=== PATIENT | female | born 2000 | race Caucasian/White ===

== ENCOUNTER 2020-03-07 09:13 | Outpatient (REF) | payer OTHER, SELFPAY | END 2020-03-07 09:14 | disposition home or self-care (01) | LOC: HO.LAB 09:13 | PROVIDERS: Visit Provider Internal Medicine | DX: Z20.822 Contact with and (suspected) exposure to COVID-19 (principal) | CPT/HCPCS: 36415; C9803; U0003 ==

== ENCOUNTER 2020-03-07 09:27 | Emergency (ER) | payer OTHER, SELFPAY ==
[2020-03-07 10:29] VITALS: BP 111/71; PULSE 108; RESP 20; TEMP 37.8; O2SAT 100; BMI 24.7
--- NOTE | 2020-03-07 10:33 | ECG_ITS ---
Test Reason : SYNCOPE Blood Pressure : / mmHG Vent. Rate : 099 BPM Atrial Rate : 099 BPM P-R Int : 124 ms QRS Dur : 074 ms QT Int : 322 ms P-R-T Axes : 011 037 036 degrees QTc Int : 413 ms Normal sinus rhythm Normal ECG No previous ECGs available Referred By: Hamida Price Electronically Signed By:Taran Blackman
--- NOTE | 2020-03-07 10:33 | XR_ITS ---
EXAMINATION: XR CHEST CLINICAL INFORMATION: Cough. COMPARISON: None TECHNIQUE: Frontal view of the chest was obtained. FINDINGS: The lungs are well-expanded and clear acute process. The heart size and pulmonary vascularity is normal. Mild extra scoliosis of mid dorsal spine. No lytic process. XR/XR chest 1V IMPRESSION: Unremarkable chest exam.
--- NOTE | 2020-03-07 10:50 | ED_ITS ---
HPI - Syncope General Chief Complaint: Syncope Stated Complaint: passed out Time Seen by Provider: 03/07/20 10:33 Source: patient Mode of arrival: ambulatory Limitations: no limitations History of Present Illness HPI narrative: 19 y/o healthy female who presents to the ED for evaluation after she passed out while in the shower this morning. She was feeling lightheaded and dizzy prior to the event. She does not think she hit her head, she has no neck pain. Her mother heard her fall and came to the bathroom, she was awake. She has a history of syncope in the past when she was sick with pneumonia. She did not eat any breakfast this morning. She reports a few days of cold symptoms including headache, nasal congestion, runny nose. She denies shortness of breath, chest pain. MD complaint: loss of consciousness, felt faint and collapsed Onset (ago): hour(s) (3) -: second(s) Prodromal symptoms: lightheaded Witnessed: No Context: at rest Injuries sustained associated with event: none Current symptoms: back to baseline History: previous syncopal episode Treatments prior to arrival: none Related Data Allergies Allergy/AdvReac Type Severity Reaction Status Date / Time No Known Allergies Allergy Verified 03/07/20 10:28 Review of Systems Review of Systems: Constitutional: No Fever, + Chills ENT/Mouth: + sore throat, + Rhinorrhea, No Swallowing Difficulty Eyes: No Eye Pain, No Swelling, No Redness Cardiovascular: No Chest Pain, No SOB, No Orthopnea, No Edema Respiratory: No Cough, No Sputum, No Wheezing, No dyspnea Gastrointestinal: No Nausea, No Vomiting, No Diarrhea, No abdominal Pain Genitourinary: No Dysuria, No Urinary Frequency, No Hematuria Musculoskeletal: No joint pain, + Myalgias Skin: No Skin Lesions, No rash Neuro: + Weakness, No Numbness, + Dizziness, + Headache Heme/Lymph: No Bruising, No Lymphadenopathy PMFSH Past Medical History Attestation statement: The following information was validated with the patient. Medical History (Updated 03/07/20 @ 12:49 by JAVIER Lopez) No known health problems Social History Social History Advance Directives: No Advance Directives Information Provided: No Physical Exam Vital Signs: Vital Signs: Last Vital Signs Temp 100.1 F 03/07/20 10:29 Pulse 119 H 03/07/20 11:48 Resp 20 03/07/20 10:29 BP 136/69 03/07/20 11:48 Pulse Ox 100 03/07/20 10:29 Body Mass Index 24.7 Appearance: Alert. Oriented X3. No acute distress. Head: normocephalic, atraumatic, no tenderness Neck: supple, no cervical spinal tenderness, normal ROM Eyes: Pupils equal, round and reactive to light. EOMI. ENT: Pharynx normal. Neck: Normal inspection. Neck supple. CVS: Normal heart rate and rhythm. Pulses normal. Respiratory: No respiratory distress. Breath sounds normal. Abdomen: Soft and nontender. +BS x4 Skin: Skin warm and dry. Normal skin color. Normal skin turgor. No rashes. Extremities: No lower extremity edema. Neuro: Oriented X 3. No motor deficit. No sensory deficit. Course Course Course Narrative: 19 y/o female presenting with syncopal event when getting out of the shower today associated with flu-like symptoms. Suspect vasovagal syncope. Now back to baseline, no injuries or neurological deficits on exam. She appears well. Doubt PE. Will get lab workup, EKG and resp panel. VSS. Will give gentle hydration and check orthostatic VS. Reevaluation(s) Reevaluation #1: Orthostatic + for tachycardia when standing, no dizziness. BP stable. IVF ordered as well as tylenol. COVID is positive. She is not hypoxic, SOB or coughing. MDM - Syncope Differential Diagnosis Differential diagnosis: Likely syncope due to orthostatic hypotension, vasovagal syncope and dehydration Medical Records Attestation: I reviewed the patient's medical records. Lab Data Attestation: I reviewed the patient's lab results. Result diagrams: 03/07/20 11:10 03/07/20 11:10 Labs: Lab Results 03/07/20 03/07/20 03/07/20 Range/Units 11:10 11:10 11:10 WBC 6.1 (4.8-10.8) X10*3/uL RBC 4.46 (4.20-5.50) X10*6/uL Hgb 13.5 (12.0-16.0) g/dl Hct 40.7 (37-47) % MCV 91.3 (80-98) fL MCH 30.3 (27.0-33.0) pg MCHC 33.2 (31.0-35.0) g/dl RDW 12.8 (11.0-16.0) % Plt Count 248 (160-400) X10*3/uL MPV 9.5 (9.4-12.3) fL Immature Gran % (Auto) 0.2 (0.0-0.4) % Neut % (Auto) 77.4 H (45-73) % Lymph % (Auto) 8.8 L (20-40) % Bartholomew % (Auto) 10.3 (2-11) % Eos % (Auto) 2.3 (0-4) % Baso % (Auto) 1.0 (0-2) % Lymph # (Auto) 0.5 L (1.2-4.9) X10*3/uL Bartholomew # (Auto) 0.6 (0.1-1.2) X10*3/uL Eos # (Auto) 0.1 (0.0-0.4) X10*3/uL Baso # (Auto) 0.1 (0.0-0.2) X10*3/uL Abs Immat Gran (auto) 0.01 (0.00-0.03) X10*3/uL Absolute Neuts (auto) 4.8 (2.0-8.3) X10*3/uL Absolute Nucleated RBC 0.000 (0.0-0.012) X10*3/uL Nucleated RBC % (auto) 0.0 (0.0-0.2) /100WBC Smear Tech's Comments VERIFIED Hold Blue Top SEE NOTE Sodium 136 (135-145) mmol/L Potassium 4.3 (3.3-5.1) mmol/l Chloride 101 (96-108) mmol/L Carbon Dioxide 28 (22-29) mmol/L Anion Gap 11 L (12-20) BUN 11 (9-16) mg/dL Creatinine 0.78 (0.5-1.4) mg/dL Estim Creat Clear Calc 90.6 Estimated GFR > 60 Random Glucose 89 (60-115) mg/dL Lactic Acid (0.5-2.0) mmol/L Calcium 9.1 (8.4-10.2) mg/dL Magnesium 2.0 (1.6-2.6) mg/dL Total Bilirubin 0.2 (0.0-1.0) mg/dL Direct Bilirubin < 0.2 (0.0-0.5) mg/dL AST 27 (5-31) U/L ALT 51 H (0-31) U/L Alkaline Phosphatase 78 (39-117) U/L C-Reactive Protein 0.48 (< or = 0.50) mg/dL Total Protein 6.8 (6.5-8.0) g/dL Albumin 4.2 (3.5-5.0) g/dL Urine Color Urine Appearance Urine pH (5.0-8.0) Ur Specific [place] (1.005-1.025) Urine Protein (NEG-TRACE) MG/DL Urine Glucose (UA) (NEG) MG/DL Urine Ketones (NEG) MG/DL Urine Blood (NEG) Urine Nitrite (NEG) Ur Leukocyte Esterase (NEG) Urine RBC (0) /HPF Urine WBC (0-4) /HPF Ur Squamous Epith Cells /LPF Urine Bacteria /LPF Urine Test (NEGATIVE) Urine Opiates Screen (Not Detect) Ur Barbiturates Screen (Not Detect) Ur Phencyclidine Scrn (Not Detect) Ur Amphetamines Screen (Not Detect) U Benzodiazepines Scrn (Not Detect) Urine Cocaine Screen (Not Detect) U Marijuana (THC) Screen (Not Detect) Coronavirus (PCR) (Negative) Influenza Type A (PCR) (Negative) Influenza Type B (PCR) (Negative) RSV RNA Qual (PCR) (Negative) 03/07/20 03/07/20 03/07/20 Range/Units 11:10 11:10 11:10 WBC (4.8-10.8) X10*3/uL RBC (4.20-5.50) X10*6/uL Hgb (12.0-16.0) g/dl Hct (37-47) % MCV (80-98) fL MCH (27.0-33.0) pg MCHC (31.0-35.0) g/dl RDW (11.0-16.0) % Plt Count (160-400) X10*3/uL MPV (9.4-12.3) fL Immature Gran % (Auto) (0.0-0.4) % Neut % (Auto) (45-73) % Lymph % (Auto) (20-40) % Bartholomew % (Auto) (2-11) % Eos % (Auto) (0-4) % Baso % (Auto) (0-2) % Lymph # (Auto) (1.2-4.9) X10*3/uL Bartholomew # (Auto) (0.1-1.2) X10*3/uL Eos # (Auto) (0.0-0.4) X10*3/uL Baso # (Auto) (0.0-0.2) X10*3/uL Abs Immat Gran (auto) (0.00-0.03) X10*3/uL Absolute Neuts (auto) (2.0-8.3) X10*3/uL Absolute Nucleated RBC (0.0-0.012) X10*3/uL Nucleated RBC % (auto) (0.0-0.2) /100WBC Smear Tech's Comments Hold Blue Top Sodium (135-145) mmol/L Potassium (3.3-5.1) mmol/l Chloride (96-108) mmol/L Carbon Dioxide (22-29) mmol/L Anion Gap (12-20) BUN (9-16) mg/dL Creatinine (0.5-1.4) mg/dL Estim Creat Clear Calc Estimated GFR Random Glucose (60-115) mg/dL Lactic Acid (0.5-2.0) mmol/L Calcium (8.4-10.2) mg/dL Magnesium (1.6-2.6) mg/dL Total Bilirubin (0.0-1.0) mg/dL Direct Bilirubin (0.0-0.5) mg/dL AST (5-31) U/L ALT (0-31) U/L Alkaline Phosphatase (39-117) U/L C-Reactive Protein (< or = 0.50) mg/dL Total Protein (6.5-8.0) g/dL Albumin (3.5-5.0) g/dL Urine Color STRAW Urine Appearance CLOUDY Urine pH 6.0 (5.0-8.0) Ur Specific [place] <= 1.005 (1.005-1.025) Urine Protein NEG (NEG-TRACE) MG/DL Urine Glucose (UA) NEG (NEG) MG/DL Urine Ketones NEG (NEG) MG/DL Urine Blood 3+ H (NEG) Urine Nitrite NEG (NEG) Ur Leukocyte Esterase 2+ H (NEG) Urine RBC 5-9 H (0) /HPF Urine WBC 10-14 H (0-4) /HPF Ur Squamous Epith Cells 4+ /LPF Urine Bacteria 2+ /LPF Urine Test NEGATIVE (NEGATIVE) Urine Opiates Screen Not Detected (Not Detect) Ur Barbiturates Screen Not Detected (Not Detect) Ur Phencyclidine Scrn Not Detected (Not Detect) Ur Amphetamines Screen Not Detected (Not Detect) U Benzodiazepines Scrn Not Detected (Not Detect) Urine Cocaine Screen Not Detected (Not Detect) U Marijuana (THC) Screen Not Detected (Not Detect) Coronavirus (PCR) POSITIVE A (Negative) Influenza Type A (PCR) NEGATIVE (Negative) Influenza Type B (PCR) NEGATIVE (Negative) RSV RNA Qual (PCR) NEGATIVE (Negative) 03/07/20 Range/Units 11:35 WBC (4.8-10.8) X10*3/uL RBC (4.20-5.50) X10*6/uL Hgb (12.0-16.0) g/dl Hct (37-47) % MCV (80-98) fL MCH (27.0-33.0) pg MCHC (31.0-35.0) g/dl RDW (11.0-16.0) % Plt Count (160-400) X10*3/uL MPV (9.4-12.3) fL Immature Gran % (Auto) (0.0-0.4) % Neut % (Auto) (45-73) % Lymph % (Auto) (20-40) % Bartholomew % (Auto) (2-11) % Eos % (Auto) (0-4) % Baso % (Auto) (0-2) % Lymph # (Auto) (1.2-4.9) X10*3/uL Bartholomew # (Auto) (0.1-1.2) X10*3/uL Eos # (Auto) (0.0-0.4) X10*3/uL Baso # (Auto) (0.0-0.2) X10*3/uL Abs Immat Gran (auto) (0.00-0.03) X10*3/uL Absolute Neuts (auto) (2.0-8.3) X10*3/uL Absolute Nucleated RBC (0.0-0.012) X10*3/uL Nucleated RBC % (auto) (0.0-0.2) /100WBC Smear Tech's Comments Hold Blue Top Sodium (135-145) mmol/L Potassium (3.3-5.1) mmol/l Chloride (96-108) mmol/L Carbon Dioxide (22-29) mmol/L Anion Gap (12-20) BUN (9-16) mg/dL Creatinine (0.5-1.4) mg/dL Estim Creat Clear Calc Estimated GFR Random Glucose (60-115) mg/dL Lactic Acid 0.6 (0.5-2.0) mmol/L Calcium (8.4-10.2) mg/dL Magnesium (1.6-2.6) mg/dL Total Bilirubin (0.0-1.0) mg/dL Direct Bilirubin (0.0-0.5) mg/dL AST (5-31) U/L ALT (0-31) U/L Alkaline Phosphatase (39-117) U/L C-Reactive Protein (< or = 0.50) mg/dL Total Protein (6.5-8.0) g/dL Albumin (3.5-5.0) g/dL Urine Color Urine Appearance Urine pH (5.0-8.0) Ur Specific [place] (1.005-1.025) Urine Protein (NEG-TRACE) MG/DL Urine Glucose (UA) (NEG) MG/DL Urine Ketones (NEG) MG/DL Urine Blood (NEG) Urine Nitrite (NEG) Ur Leukocyte Esterase (NEG) Urine RBC (0) /HPF Urine WBC (0-4) /HPF Ur Squamous Epith Cells /LPF Urine Bacteria /LPF Urine Test (NEGATIVE) Urine Opiates Screen (Not Detect) Ur Barbiturates Screen (Not Detect) Ur Phencyclidine Scrn (Not Detect) Ur Amphetamines Screen (Not Detect) U Benzodiazepines Scrn (Not Detect) Urine Cocaine Screen (Not Detect) U Marijuana (THC) Screen (Not Detect) Coronavirus (PCR) (Negative) Influenza Type A (PCR) (Negative) Influenza Type B (PCR) (Negative) RSV RNA Qual (PCR) (Negative) ECG Data Attestation: I personally reviewed and interpreted this ECG as follows: ECG interpretation date: 03/07/20 ECG interpretation time: 11:13 Interpretation: normal sinus rhythm, HR 99, normal AR interval, normal QTc, no ST elevation or ischemic changes Discharge Plan Discharge Clinical Impression: Vasovagal syncope, COVID-19 Patient Disposition: Home, Self-Care Instructions: Syncope (ED), COVID-19 (Coronavirus Disease 2019) (ED) Additional Instructions: You were found to be COVID positive today. Your workup was otherwise unremarkable. Do not go out in public for the next 14 days. Rest, stay hydrated. Take over the counter cold/flu medications as needed for your symptoms. Take Motrin and/or Tylenol as needed for fevers and body aches. If you develop shortness of breath, difficultly breathing, chest pain, or pass out again, come back the ER for further evaluation. Interventions: ED Discharge Assessment Last Done: 03/07/20 13:48 Discharge Date/Time: 03/07/20 13:49
[2020-03-07 11:19] LABS: Basophils Absolute Auto 0.1 X10*3/uL (0.0-0.2); Eosinophils Absolute Auto 0.1 X10*3/uL (0.0-0.4); Eosinophils Percent Auto 2.3 % (0-4); Hematocrit 40.7 % (37-47); Hemoglobin 13.5 g/dl (12.0-16.0); Imm Gran Abs Auto 0.01 X10*3/uL (0.00-0.03); Imm Gran Pct Auto 0.2 % (0.0-0.4); Lymphocytes Absolute Auto 0.5 X10*3/uL (1.2-4.9); Lymphocytes Percent Auto 8.8 % (20-40); MANUAL DIFF FLAG SCAN; Mean Corpuscular HGB Conc 33.2 g/dl (31.0-35.0); Mean Corpuscular Hemoglobin 30.3 pg (27.0-33.0); Mean Corpuscular Volume 91.3 fL (80-98); Mean Platelet Volume 9.5 fL (9.4-12.3); Monocytes Absolute Auto 0.6 X10*3/uL (0.1-1.2); Monocytes Percent Auto 10.3 % (2-11); Neutrophils Absolute Auto 4.8 X10*3/uL (2.0-8.3); Neutrophils Percent Auto 77.4 % (45-73); Platelet Count 248 X10*3/uL (160-400); Red Blood Count 4.46 X10*6/uL (4.20-5.50); Red Cell Distribution Width 12.8 % (11.0-16.0); SCAN SMEAR FLAG 1; White Blood Count 6.1 X10*3/uL (4.8-10.8)
[2020-03-07] MEDS: Acetaminophen 325 MG TABLET 650 MG PO (11:21)
[2020-03-07] MEDS: 0.9 % Sodium Chloride 1,000 ML 999 ML IVCONT (11:22)
[2020-03-07 11:28] LABS: Glucose Urine UA NEG (NEG); Leukocyte Esterase Urine 2+ (NEG); Nitrite Urine NEG (NEG); Specific Gravity - Urine <= 1.005 (1.005-1.025); Urine Blood 3+ (NEG); Urine Ketones NEG (NEG); Urine Protein NEG (NEG-TRACE)
[2020-03-07 11:31] LABS: Urine Pregnancy NEGATIVE (NEGATIVE)
[2020-03-07 11:32] LABS: Appearance Urine CLOUDY; Color Urine STRAW; UPreg QC Valid YES
[2020-03-07 11:36] LABS: Bacteria Urine 2+ /LPF; Squamous Epithelial Cell Urine 4+ /LPF
[2020-03-07 11:45] LABS: Alanine Aminotransferase 51 U/L (0-31); Albumin Level 4.2 g/dL (3.5-5.0); Alkaline Phosphatase 78 U/L (39-117); Anion Gap 11 (12-20); Aspartate Amino Transferase 27 U/L (5-31); Bilirubin Direct < 0.2 mg/dL (0.0-0.5); Bilirubin Total 0.2 mg/dL (0.0-1.0); Blood Urea Nitrogen 11 mg/dL (9-16); C Reactive Protein 0.48 mg/dL (< or = 0.50); Calcium 9.1 mg/dL (8.4-10.2); Carbon Dioxide 28 mmol/L (22-29); Chloride 101 mmol/L (96-108); Creatinine Clr Calc Pharmacy 90.6; Estimated Glomerular Filt Rate > 60; Glucose Random 89 mg/dL (60-115); Potassium 4.3 mmol/l (3.3-5.1); Sodium 136 mmol/L (135-145); Total Protein 6.8 g/dL (6.5-8.0)
[2020-03-07 11:46] VITALS: BP 111/71; BP 114/69; PULSE 100; PULSE 108
[2020-03-07 11:48] VITALS: BP 136/69; PULSE 119
[2020-03-07 12:00] LABS: Influenza A PCR NEGATIVE (Negative); Influenza B PCR NEGATIVE (Negative); Resp Syncy Virus RNA Qual PCR NEGATIVE (Negative); SARS COV2 PCR INHOUSE POSITIVE (Negative)
[2020-03-07 12:07] LABS: Lactic Acid 0.6 mmol/L (0.5-2.0)
[2020-03-07 12:07] LABS: SLIDE REVIEW VERIFIED
[2020-03-07 12:11] LABS: Amphetamine Screen Urine Not Detected (Not Detect); Barbiturates, Urine Not Detected (Not Detect); Benzodiazepines Screen Urine Not Detected (Not Detect); Cannabinoid Screen Urine Not Detected (Not Detect); Cocaine Screen Urine Not Detected (Not Detect); Opiate Screen Urine Not Detected (Not Detect); Phencyclidine Screen Urine Not Detected (Not Detect)
== END 2020-03-07 13:49 | disposition home or self-care (01) ==
PROVIDERS: Physician Assistant; Emergency Provider Emergency Medicine
DX: U07.1 COVID-19 (principal); R55 Syncope and collapse
CPT/HCPCS: 0241U; 36415; 71045; 80048; 80076; 80307; 81001; 81025; 83605; 83735; 85025; 86140; 87040; 87086; 93005; 96360; 99283; 99284

== ENCOUNTER → 2020-07-27 14:33 | Outpatient (BNVA) | payer OTHER, SELFPAY | PROVIDERS: PCP Internal Medicine; Visit Provider Advanced Practice Midwife ==

== ENCOUNTER 2020-09-07 09:15 | Outpatient (REF) | payer OTHER, SELFPAY ==
[2020-09-07 12:25] LABS: Alanine Aminotransferase 19 U/L (0-31); Albumin Level 4.1 g/dL (3.5-5.0); Alkaline Phosphatase 81 U/L (39-117); Anion Gap 14 (12-20); Aspartate Amino Transferase 20 U/L (5-31); Bilirubin Total 0.5 mg/dL (0.0-1.0); Blood Urea Nitrogen 14 mg/dL (9-16); Calcium 9.6 mg/dL (8.4-10.2); Carbon Dioxide 26 mmol/L (22-29); Chloride 104 mmol/L (96-108); Cholesterol 151 mg/dL; Estimated Glomerular Filt Rate > 60; Glucose Fasting 74 mg/dL (60-99); HDL Cholesterol 85 mg/dL; LDL Cholesterol Calculated 51 mg/dl; Potassium 4.6 mmol/L (3.3-5.1); Sodium 139 mmol/L (135-145); Total Protein 6.8 g/dL (6.5-8.0); Triglycerides 78 mg/dL
== END 2020-09-07 09:16 | disposition home or self-care (01) ==
LOC: HO.HMGCLDS 09:15
PROVIDERS: PCP Internal Medicine; Visit Provider Internal Medicine
DX: Z00.01 Encounter for general adult medical examination with abnormal findings (principal); R79.89 Other specified abnormal findings of blood chemistry
CPT/HCPCS: 36415; 80053; 80061

== ENCOUNTER 2020-11-28 10:37 | Outpatient (REF) | payer OTHER, SELFPAY ==
[2020-12-01 16:30] LABS: TS Negative Control Passed; TS Panel A 0; TS Panel B 0; TS Positive Control Passed; TSpotTB Negative (SeeBelow)
== END 2020-11-28 10:38 | disposition home or self-care (01) ==
LOC: HO.HMGCLDS 10:37
PROVIDERS: PCP Internal Medicine; Visit Provider Internal Medicine
DX: Z11.1 Encounter for screening for respiratory tuberculosis (principal)
CPT/HCPCS: 36415; 86481

== ENCOUNTER → 2021-01-04 15:01 | Outpatient (BNVA) | payer OTHER, SELFPAY | PROVIDERS: Visit Provider Advanced Practice Midwife | DX: Z30.09 Encounter for other general counseling and advice on contraception (principal); Z30.017 Encounter for initial prescription of implantable subdermal contraceptive | CPT/HCPCS: 11981; 81025; 99212; J7307 ==

== ENCOUNTER 2022-07-17 12:57 | Outpatient (REF) | payer OTHER, SELFPAY ==
[2022-07-18 07:27] LABS: ~Hepatitis B Surface Antibody NONREACTIVE (Nonreactive)
[2022-07-19 05:09] LABS: Rubella IgG Antibody 2.38 Index
[2022-07-19 11:09] LABS: Mumps Virus IgG Antibody <9.00 AU/mL; Rubeola IgG (Measles) <13.50 AU/mL
[2022-07-19 11:18] LABS: TS Negative Control Passed; TS Panel A 0; TS Panel B 2; TS Positive Control Passed; TSpotTB Negative (Negative)
[2022-07-24 15:07] LABS: Tetanus Antitoxiod Antibody 0.48 IU/mL
== END 2022-07-17 12:58 | disposition home or self-care (01) ==
LOC: HO.HMGCLDS 12:57
PROVIDERS: PCP Internal Medicine; Visit Provider Internal Medicine
DX: Z02.0 Encounter for examination for admission to educational institution (principal); Z28.39 Other underimmunization status
CPT/HCPCS: 36415; 86481; 86706; 86735; 86762; 86765; 86774; 86787

== ENCOUNTER 2022-07-25 08:04 | Outpatient (REF) | payer OTHER, SELFPAY ==
[2022-07-27 08:09] LABS: HBS Num1 0.42 mIU/mL (0-7.99); ~Hepatitis B Surface Antibody NONREACTIVE (Nonreactive)
== END 2022-07-25 08:05 | disposition home or self-care (01) ==
LOC: HO.HMGCLDS 08:04
PROVIDERS: PCP Internal Medicine; Visit Provider Internal Medicine
DX: Z28.39 Other underimmunization status (principal)
CPT/HCPCS: 36415; 86706

== ENCOUNTER 2023-02-06 12:13 | Outpatient (AMB) | payer OTHER, SELFPAY ==
[2023-02-06 12:21] VITALS: BP 100/62; PULSE 90; O2SAT 98; BMI 29.8
--- NOTE | 2023-02-06 12:21 | A.OFFPC_ITS ---
Vital Signs 3 02/06/23 12:21 Height 5 ft Weight 152 lb 8 oz BMI 29.8 BP 100/62 Blood Pressure Location Rt brachial Position Sitting Pulse 90 Pulse Source Pulse Oximeter Pulse Oximetry (%) 98 Oxygen Delivery Method Room Air Intake Visit Reasons: back pain Allergies No Known Allergies Allergy (Verified 02/06/23 12:26) Medication List - Last Reconciled 02/06/23 by Kelly Kamara MD etonogestrel (Nexplanon) subdermal DAILY ibuprofen 800 mg PO Q8H 10 days Tobacco use date assessed: 02/06/23 Dental Screening Dental Screen Date: 02/06/23 Did you have a dental visit in the last 12 months?: Yes Did you have a dental problem in the last 6 months where you did not have access to dental care?: No Was dental information given to patient?: Patient has dentist HPI back pain 2 HPI0 Details Patient is 22-year-old female came in today to be evaluated for mid back pain which has been happening for the past 1 week She is also complaining of pain in the back of the neck which started 3 days ago 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 I am treating her with a muscle relaxer and diclofenac 75 mg b.i.d. with food Patient says that she took Tylenol and ibuprofen yesterday that did help her I have told her not to take ibuprofen with diclofenac. We will book a telemedicine visit in 10 days to follow-up on that [facility] Medical History No known health problems Social History Housing: House Alcohol intake: current Alcohol intake frequency: holidays/special occasions only Patient Tobacco Use Status: Never used Tobacco e-Cigarette/Vaping Use: Never Used Current occupational status: employed Gender identity: Female Cognitive needs: No Hearing needs: No Vision needs: Yes Female Reproductive History Menstrual Age of Menarche: 11 Questionnaire Thrive Questionnaire Date Thrive assessed: 07/28/21 AUDIT C Alcohol Use Questionnaire (AUDIT-C) 1. How often do you have a drink containing alcohol?: 2-4 times a month 2. How many drinks containing alcohol do you have on a typical day when you are drinking?: 3 or 4 3. How often do you have six or more drinks on one occasion?: Never Total Score: 3 Score Reviewed/Action Taken: Yes JANENE-7 AMB Questionnaire JANENE-7 Date JANENE - 7 assessed: 07/28/21 Source: Developed by Drs. Nabeel Lyon, Kath Walsh, Austin Aguilar and colleagues, with an educational roxy from [employer] Review of Systems Const All systems reviewed & are unremarkable except as noted in HPI and below Denies chills and Denies fever(s) Card Denies chest pain Resp Denies chest congestion, Denies cough and Denies hemoptysis GI Denies diarrhea and Denies nausea Skin/Breast Denies rash Neuro Reports no additional complaints Psych Reports no additional complaints Endo Reports no additional complaints Physical exam (Primary Care) Vital Signs: Last Vital Signs Pulse 90 02/06/23 12:21 BP 100/62 02/06/23 12:21 Pulse Ox 98 02/06/23 12:21 Oxygen Delivery Method Room Air 02/06/23 12:21 BMI result Body Mass Index 29.8 Tobacco/Smoking Status: Tobacco use Status Tobacco use date assessed 02/06/23 02/06/23 12:26 Patient Tobacco Use Status Never used Tobacco 02/06/23 12:26 e-Cigarette/Vaping Use Never Used 02/06/23 12:26 Thrive Assessment: Date of Thrive Assessment Date Thrive assessed 07/28/21 02/06/23 12:26 Const General: no acute distress Orientation/consciousness: patient oriented x3 Eyes General: appearance normal, both eyes and all related structures Neck Other: Pain located the back of neck Neck: Yes supple Resp Effort & Inspection: normal respiratory effort and able to speak in complete sentences Auscultation: clear to auscultation bilaterally Back/Spine/Pelvis Back/spine/pelvis image: 2 1. Side pain, no rash, no pain with percussion Neuro General: patient oriented x3 Psych Mental Status: mental status grossly normal Assessment and Plan Assessment & Plan (1) Neck strain: Code(s): S16.1XXA - Strain of muscle, fascia and tendon at neck level, initial encounter Qualifiers: Encounter type: initial encounter Qualified Code(s): S16.1XXA - Strain of muscle, fascia and tendon at neck level, initial encounter (2) Mid-back pain, acute: Code(s): M54.9 - Dorsalgia, unspecified Plan Patient is 22-year-old female came in today to be evaluated for mid back pain which has been happening for the past 1 week She is also complaining of pain in the back of the neck which started 3 days ago 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 I am treating her with a muscle relaxer and diclofenac 75 mg b.i.d. with food Patient says that she took Tylenol and ibuprofen yesterday that did help her I have told her not to take ibuprofen with diclofenac. We will book a telemedicine visit in 10 days to follow-up on that Medications: New 2 diclofenac sodium Take it with food 75 mg PO BID 28 tabs 0RF pain 14 days cyclobenzaprine 5 mg PO BID PRN 20 tabs 0RF muscle spasm 14 days Discontinued 2 ibuprofen Discontinued Reason: Doctor's Order 800 mg PO Q8H 10 days 30 tabs 0RF Coding Level of Care Code Est Pt Level 3 (64364) Diagnoses Strain of neck muscle, initial encounter S16.1XXA Encounter type: initial encounter Mid-back pain, acute M54.9
== END 2023-02-06 12:46 | disposition home or self-care (01) ==
PROVIDERS: PCP Internal Medicine; Visit Provider Internal Medicine
DX: S16.1XXA Strain of muscle, fascia and tendon at neck level, initial encounter (principal); M54.9 Dorsalgia, unspecified
CPT/HCPCS: 99213

== ENCOUNTER 2023-02-21 08:37 | Outpatient (AMB) | payer OTHER, SELFPAY ==
--- NOTE | 2023-02-21 09:15 | A.OFFPC_ITS ---
Intake Visit Reasons: 10 day F/U Telehealth Allergies No Known Allergies Allergy (Verified 02/21/23 09:15) Medication List - Last Reconciled 02/21/23 by Kelly Kamara MD cyclobenzaprine 5 mg PO BID PRN 14 days diclofenac sodium 75 mg PO BID 14 days etonogestrel (Nexplanon) subdermal DAILY Tobacco use date assessed: 02/21/23 Dental Screening Dental Screen Date: 02/21/23 Did you have a dental visit in the last 12 months?: Yes Did you have a dental problem in the last 6 months where you did not have access to dental care?: No Was dental information given to patient?: Patient has dentist HPI 10 day F/U Telehealth HPI Details Patient is 22-year-old female this is a telemedicine visit to follow-up on her mid back and neck pain Patient was seen 10 days ago and was prescribed diclofenac along with muscle relaxer She said that she did not benefit from the medication and she continued to feel the pain. I am ordering physical therapy for the patient we will re-evaluate after the physical therapy. [facility] Medical History No known health problems Social History Housing: House Alcohol intake: current Alcohol intake frequency: holidays/special occasions only Patient Tobacco Use Status: Never used Tobacco e-Cigarette/Vaping Use: Never Used Current occupational status: employed Gender identity: Female Cognitive needs: No Hearing needs: No Vision needs: Yes Female Reproductive History Menstrual Age of Menarche: 11 Questionnaire Thrive Questionnaire Date Thrive assessed: 07/28/21 JANENE-7 AMB Questionnaire JANENE-7 Date JANENE - 7 assessed: 07/28/21 Source: Developed by Drs. Nabeel Lyon, Kath Walsh, Austin Aguilar and colleagues, with an educational roxy from [employer]. Review of Systems Const Denies chills and Denies fever(s) ENT Denies epistaxis and Denies nasal discharge Card Denies chest pain Resp Denies chest congestion, Denies cough and Denies hemoptysis GI Denies diarrhea and Denies nausea Skin/Breast Denies rash Neuro Reports no additional complaints Psych Reports no additional complaints Endo Reports no additional complaints Physical exam (Primary Care) Tobacco/Smoking Status: Tobacco use Status Tobacco use date assessed 02/21/23 02/21/23 09:16 Patient Tobacco Use Status Never used Tobacco 02/21/23 09:16 e-Cigarette/Vaping Use Never Used 02/21/23 09:16 Thrive Assessment: Date of Thrive Assessment Date Thrive assessed 07/28/21 02/21/23 09:16 Telehealth Telehealth Location of provider rendering services: practice address Location of patient: address on file Patient Identification confirmed using: Name, : Yes Telehealth method: voice only Patient verbally consented to treatment: Yes Patient verbally consented to billing insurance company: Yes Patient informed of any privacy concerns related to visit: Yes Minutes spent on Phone/Video with Pt.: 11 Assessment and Plan Assessment & Plan (1) Neck strain: Code(s): S16.1XXA - Strain of muscle, fascia and tendon at neck level, initial encounter Qualifiers: Encounter type: initial encounter Qualified Code(s): S16.1XXA - Strain of muscle, fascia and tendon at neck level, initial encounter (2) Mid-back pain, acute: Code(s): M54.9 - Dorsalgia, unspecified Plan Patient is 22-year-old female this is a telemedicine visit to follow-up on her mid back and neck pain Patient was seen 10 days ago and was prescribed diclofenac along with muscle relaxer She said that she did not benefit from the medication and she continued to feel the pain. I am ordering physical therapy for the patient we will re-evaluate after the physical therapy. Orders: Orders PT Evaluation and Treatment Today M54.9 - Dorsalgia, unspecified, S16.1XXA - Strain of muscle, fascia and tendon at neck level, initial encounter Coding Level of Care Code Tele Est Pt Level 3 (50753) Diagnoses Strain of neck muscle, initial encounter S16.1XXA Encounter type: initial encounter Mid-back pain, acute M54.9
== END 2023-02-21 11:43 | disposition home or self-care (01) ==
PROVIDERS: PCP Internal Medicine; Visit Provider Internal Medicine
DX: S16.1XXA Strain of muscle, fascia and tendon at neck level, initial encounter (principal); M54.9 Dorsalgia, unspecified
CPT/HCPCS: 99213

== ENCOUNTER 2023-03-08 09:50 | Outpatient (AMB) | payer OTHER, SELFPAY ==
[2023-03-08 09:57] VITALS: BP 116/76; PULSE 107; O2SAT 98; BMI 29.6
--- NOTE | 2023-03-08 09:57 | MHC.PC.OV ---
Vital Signs 03/08/23 09:57 Height 5 ft Weight 151 lb 8 oz BMI 29.6 BP 116/76 Blood Pressure Location Lt brachial Position Sitting Pulse 107 H Pulse Source Pulse Oximeter Pulse Oximetry (%) 98 Oxygen Delivery Method Room Air Intake Visit Reasons: Annual PE Allergies No Known Allergies Allergy (Verified 03/08/23 09:58) Medication List - Last Reconciled 03/08/23 by Kelly Kamara MD etonogestrel (Nexplanon) subdermal DAILY Tobacco use date assessed: 03/08/23 Dental Screening Dental Screen Date: 03/08/23 Did you have a dental visit in the last 12 months?: Yes Did you have a dental problem in the last 6 months where you did not have access to dental care?: No Was dental information given to patient?: Patient has dentist HPI Annual PE HPI Details Physical exam appointment Patient is doing well She is seeing OBGYN for but controlled implantable Breast exam was done today no lumps were found Labs to be done fasting [facility] Medical History No known health problems Social History Housing: House Alcohol intake: current Alcohol intake frequency: holidays/special occasions only Patient Tobacco Use Status: Never used Tobacco e-Cigarette/Vaping Use: Never Used Current occupational status: employed Gender identity: Female Cognitive needs: No Hearing needs: No Vision needs: Yes Female Reproductive History Menstrual Age of Menarche: 11 Questionnaire PHQ-9 Over the last 2 weeks, how often have you been bothered by any of the following problems? 1. Little interest or pleasure in doing things: not at all 2. Feeling down, depressed, or hopeless: not at all 3. Trouble falling or staying asleep, or sleeping too much: several days 4. Feeling tired or having little energy: not at all 5. Poor appetite or overeating: not at all 6. Feeling bad about yourself - or that you are a failure or have let yourself or your family down: not at all 7. Trouble concentrating on things, such as reading the newspaper or watching television: not at all 8. Moving or speaking so slowly that other people could have noticed. Or the opposite - being so fidgety or restless that you have been moving around a lot more than usual: not at all 9. Thoughts that you would be better off or of hurting yourself in some way: not at all Total score: 1 Depression Screening Interpretation: Negative Depression Screening Done: Yes 89964 - PHQ-9 Billing: Yes Source: Developed by Drs. Nabeel Lyon, Kath Walsh, Austin Aguilar and colleagues, with an educational royx from [employer]. Thrive Questionnaire Date Thrive assessed: 07/28/21 I am a: Patient What is your living situation today?: I have a steady place to live Within the past 12 months, did the food you bought not last and you didn't have the money to get more?: Never true Within the past 12 months, did you worry whether your food would run out before you got money to buy more?: Never true Do you have trouble paying for medicines?: No Do you have trouble getting transportation to medical appointments?: No Do you have trouble paying your heating and electricity bill?: No Do you have trouble taking care of your child, family member or friend?: No Do you have trouble with day-to-day activities such as bathing, preparing meals, shopping, managing finances, etc.?: No Are you currently unemployed and looking for a job?: No Are you interested in more education?: No Please select the resources that you would like help with: None Currently or been in a relationship where the following occur: no concerns reported AUDIT C Alcohol Use Questionnaire (AUDIT-C) 1. How often do you have a drink containing alcohol?: 2-4 times a month 2. How many drinks containing alcohol do you have on a typical day when you are drinking?: 3 or 4 3. How often do you have six or more drinks on one occasion?: Never Total Score: 3 Score Reviewed/Action Taken: No JANENE-7 AMB Questionnaire JANENE-7 Date JANENE - 7 assessed: 03/08/23 Feeling nervous, anxious, or on edge: 0 = Not at all Not being able to stop or control worryin = Not at all Worrying too much about different things: 0 = Not at all Trouble relaxin = Not at all Being so restless that it is hard to sit still: 0 = Not at all Becoming easily annoyed or irritable: 0 = Not at all Feeling afraid as if something awful might happen: 0 = Not at all Total JANENE-7 score (0-4 normal; 5-9 mild; 10-14 moderate; 15-21 severe): 0 Source: Developed by Drs. Nabeel Lyon, Kath Walsh, Austin Aguilar and colleagues, with an educational roxy from [employer]. JANENE-7 Assessment Billing JANENE-7 Assessment Tool: JANENE-7 Assessment [id number] Review of Systems Const Denies chills, Denies fever(s) and Denies headache(s) Eyes Denies blurry vision ENT Denies headache(s), Denies nasal discharge, Denies nasal obstruction, Denies odynophagia and Denies sinus pain Card Denies chest pain at rest and Denies chest pain with activity Resp Denies cough and Denies hemoptysis GI Denies diarrhea, Denies odynophagia, Denies vomiting and Denies hematemesis Reports as per HPI Musc Denies abnormal gait Skin/Breast Reports as per HPI Neuro Denies Neuro-related abnormal movements, Denies Abnormal speech present, Denies abnormal gait, Denies headache(s) and Denies Sensory deficit (Neuro) Psych Denies mood swings and Denies paranoia Endo Reports as per HPI Jean Pierre/Lymph Reports as per HPI Aller/Immun Reports as per HPI Physical exam (Primary Care) Vital Signs: Last Vital Signs Pulse 107 H 03/08/23 09:57 BP 116/76 03/08/23 09:57 Pulse Ox 98 03/08/23 09:57 Oxygen Delivery Method Room Air 03/08/23 09:57 BMI result Body Mass Index 29.6 Tobacco/Smoking Status: Tobacco use Status Tobacco use date assessed 03/08/23 03/08/23 09:59 Patient Tobacco Use Status Never used Tobacco 03/08/23 09:59 e-Cigarette/Vaping Use Never Used 03/08/23 09:59 PHQ-9: PHQ-9 Score PHQ-9: Total score 1 03/08/23 10:14 Depression Screening Interpretation: Negative Thrive Assessment: Date of Thrive Assessment Date Thrive assessed 07/28/21 03/08/23 09:59 Currently or been in a relationship where the following occur: no concerns reported Const General: cooperative, comfortable and no acute distress Orientation/consciousness: patient oriented x3 HENMT Head: Yes normocephalic and Yes atraumatic Eyes General: appearance normal, both eyes and all related structures Pupils: Equal, round and reactive pupils present EOM: EOMs intact bilaterally Neck Neck: Yes supple and No lymphadenopathy Thyroid: Thyroid normal Lymphatic: no lymphadenopathy noted Chest Breast/axilla palpation: normal palpation of the breasts Resp Effort & Inspection: normal respiratory effort and able to speak in complete sentences Auscultation: clear to auscultation bilaterally Cardio Heart sounds: S1 normal heart sound present and S2 normal heart sound present GI Palpation (GI): Soft to palpation and nontender Auscultation: normal bowel sounds General: Yes no CVA tenderness Back/Spine/Pelvis Back: no CVA tenderness Skin General skin exam: elasticity normal and turgor normal Neuro General: patient oriented x3 and gait normal Cranial nerves: Yes Equal, round and reactive pupils present Speech: No Abnormal speech present Sensory Exam: No Sensory deficit (Neuro) Coordination: tandem gait normal and Romberg test negative Extrem General: Yes normal exam except as noted and No edema Assessment and Plan Assessment & Plan (1) Encounter for general adult medical examination without abnormal findings: Code(s): Z00.00 - Encounter for general adult medical examination without abnormal findings Plan Physical exam appointment Patient is doing well She is seeing OBGYN for but controlled implantable Breast exam was done today no lumps were found Labs to be done fasting Orders: Orders Comprehensive [place]. Panel Fast Today Z00.00 - Encounter for general adult medical examination without abnormal findings Lipid Panel Today Z00.00 - Encounter for general adult medical examination without abnormal findings Complete Blood Count Auto Diff Today Z00.00 - Encounter for general adult medical examination without abnormal findings Medications: Discontinued diclofenac sodium Take it with food Discontinued Reason: Doctor's Order 75 mg PO BID 14 days 28 tabs 0RF pain cyclobenzaprine Discontinued Reason: Doctor's Order 5 mg PO BID 14 days PRN 20 tabs 0RF muscle spasm Coding Level of Care Code Est Pt Prev Care 18-39y(02900) Diagnoses Encounter for general adult medical examination without abnormal findings Z00.00 Additional Codes JANENE-7 Assessment Billing - JANENE-7 Assessment Tool: JANENE-7 Assessment [id number] ([id number])
== END 2023-03-08 10:14 | disposition home or self-care (01) ==
PROVIDERS: PCP Internal Medicine; Visit Provider Internal Medicine
DX: Z00.00 Encounter for general adult medical examination without abnormal findings (principal)
CPT/HCPCS: 99395

== ENCOUNTER 2023-03-26 09:59 | Outpatient (REF) | payer OTHER, SELFPAY ==
[2023-03-26 13:36] LABS: MANUAL DIFF FLAG NO
[2023-03-26 13:47] LABS: Basophils Absolute Auto 0.1 X10*3/uL (0.0-0.2); Basophils Percent Auto 0.8 % (0-2); Eosinophils Absolute Auto 0.4 X10*3/uL (0.0-0.4); Eosinophils Percent Auto 5.8 % (0-4); Hematocrit 42.3 % (37.0-47.0); Hemoglobin 13.8 g/dl (12.0-16.0); Imm Gran Abs Auto 0.01 X10*3/uL (0.00-0.03); Imm Gran Pct Auto 0.1 % (0.0-0.4); Lymphocytes Absolute Auto 2.7 X10*3/uL (1.2-4.9); Lymphocytes Percent Auto 37.3 % (20-40); Mean Corpuscular HGB Conc 32.6 g/dl (31.0-35.0); Mean Corpuscular Hemoglobin 29.2 pg (27.0-33.0); Mean Corpuscular Volume 89.4 fL (80.0-98.0); Mean Platelet Volume 9.8 fL (9.4-12.3); Monocytes Absolute Auto 0.6 X10*3/uL (0.1-1.2); Monocytes Percent Auto 7.9 % (2-11); Neutrophils Absolute Auto 3.5 x10*3/uL (2.0-8.3); Neutrophils Percent Auto 48.1 % (45-73); Platelet Count 295 X10*3/uL (160-400); Red Blood Count 4.73 X10*6/uL (4.20-5.50); Red Cell Distribution Width 12.7 % (11.0-16.0); White Blood Count 7.2 X10*3/uL (4.8-10.8)
[2023-03-26 14:43] LABS: Alanine Aminotransferase 38 U/L (0-31); Albumin Level 4.3 g/dL (3.5-5.0); Alkaline Phosphatase 124 U/L (39-117); Anion Gap 11 (12-20); Aspartate Amino Transferase 26 U/L (5-31); Bilirubin Total 0.4 mg/dL (0.0-1.0); Blood Urea Nitrogen 10 mg/dL (9-16); Calcium 9.6 mg/dL (8.4-10.2); Carbon Dioxide 27 mmol/L (22-29); Chloride 104 mmol/L (96-108); Cholesterol 136 mg/dL (<200); Estimated Glomerular Filt Rate > 60; Glucose Fasting 76 mg/dL (60-99); HDL Cholesterol 57 mg/dL (>40); LDL Cholesterol Calculated 66 mg/dL (<100); Potassium 4.2 mmol/L (3.3-5.1); Sodium 138 mmol/L (135-145); Total Protein 7.1 g/dL (6.5-8.0); Triglycerides 68 mg/dL (<150)
== END 2023-03-26 10:00 | disposition home or self-care (01) ==
LOC: HO.HMGCLDS 09:59
PROVIDERS: PCP Internal Medicine; Visit Provider Internal Medicine
DX: Z00.00 Encounter for general adult medical examination without abnormal findings (principal); R79.89 Other specified abnormal findings of blood chemistry
CPT/HCPCS: 36415; 80053; 80061; 85025

== ENCOUNTER 2023-04-11 10:00 | Outpatient (RCR) | payer OTHER, SELFPAY ==
--- NOTE | 2023-03-01 08:51 | MHC.PT.EP ---
[facility] [place] Office [place] [facility] [address] Sara Bernard [address] [phone] F: [phone] F: [phone] F: [phone] F: [phone] Physical Therapy Plan of Care Date of Evaluation: 03/01/23 Date of Surgery: Diagnosis: This is a 22 yo female presenting to skilled PT with a script for cervical strain and mid back pain. Assessment: This is a 22 yo female presenting to skilled PT with a script for cervical strain and mid back pain. Patient reporting ongoing neck and midback pain for about a month now, insidious onset. Her pain comes and goes, it has not gotten better or worse since noticing it and some days are better than others. Pain is located base of occiput down and ranges down to inferior scaps and stays centralized (can radiate into the L upper trap as well). Pain is described as achy. Nothing seems to make it worse or better in terms of movements. She has tried a muscle relaxer and tylenol which did not seem to help much. She has also tried heating pain and ice for pain management as well. She does not get SALAZAR's, dizziness or numbness or tingling. Assessment reveals pain that ranges from up to a 6/10 at the worst. Patient demos decreased cervical and thoracic, L shoulder ROM, strength of B scaps and traps, TTP at C3-T7 and impaired posture with forward head and rounded shoulders as well as elevated upper traps and anterior GHJ. Based on functional limitations, impaired QOL and pain tolerance patient is a good candidate for skilled PT 2x/wk for 4wks. Frequency and Duration: The patient will be seen 2x/wk for 4wks Short Term Goals: I in HEP Improve cervical ROM by at least 25% Demo proper cervical positioning with progression of UB strengthening exercises without cues from PT Demo good understanding of avoiding upper trap elevation with and without exercises [employer] Goals: Report 50% improvement in QOL Tolerate sleeping through the night without waking from pain Improve NDI by 10 points Improve pain to no more than 2/10 at the worst Treatment Plan: Modalities to reduce pain, spasms and effusion. Manual therapy to restore motion and function. Therapeutic exercise to improve strength and flexibility. Neuromuscular re-education for posture and balance. Therapeutic activities to return to functional activities of daily living. Electronically signed by: Shamika Swann PT Please sign and return to therapist. Thank you for your referral.
--- NOTE | 2023-05-09 13:01 | MHC.PT.DC ---
[facility] [place] Office [place] Office [place] Office [address] Jaqui Bernard [address] [phone] F: [phone] F: [phone] F: [phone] F: [phone] Physical Therapy Discharge Report Diagnosis: This is a 22 yo female presenting to skilled PT with a script for cervical strain and mid back pain. Date of Surgery: Date of Evaluation: 03/01/23 Date of Discharge: 05/09/23 Treatments to Date: 11 Cancellations to Date: 0 No Shows to Date: 0 Discharge Status: Achieved Goals Improved Function Independent with HEP Discharge Summary: Patient continues to get occasional stiffness, I did educate her with posture as she is studying often and working. She demos no pain increase with any ther-ex and has good ROM, improved postural awareness and strength. She is I in her program and ready for DC. Chart will be closed after 30 days. Electronically signed by: Shamika Swann PT Please sign and return to therapist. Thank you for your referral.
== END 2023-05-09 13:02 | disposition home or self-care (01) ==
LOC: HO.PTCHIC 10:00
PROVIDERS: PCP Internal Medicine; Visit Provider Internal Medicine
DX: S16.1XXA Strain of muscle, fascia and tendon at neck level, initial encounter (principal); M54.9 Dorsalgia, unspecified
CPT/HCPCS: 97110; 97140; 97162

== ENCOUNTER 2023-04-26 13:06 | Outpatient (AMB) | payer OTHER, SELFPAY ==
[2023-04-26 13:10] VITALS: BP 126/70; PULSE 98; O2SAT 100; BMI 30.3
--- NOTE | 2023-04-26 13:10 | A.OFFPC_ITS ---
Vital Signs 3 04/26/23 13:10 Height 5 ft Weight 155 lb 6 oz BMI 30.3 BP 126/70 Blood Pressure Location Lt brachial Position Sitting Pulse 98 Pulse Source Pulse Oximeter Pulse Oximetry (%) 100 Oxygen Delivery Method Room Air Intake Visit Reasons: Neck/Back Pain~ Allergies No Known Allergies Allergy (Verified 04/26/23 13:10) Medication List - Last Reconciled 04/26/23 by Kelly Kamara MD etonogestrel (Nexplanon) subdermal DAILY Tobacco use date assessed: 04/26/23 Dental Screening Dental Screen Date: 04/26/23 Did you have a dental visit in the last 12 months?: No Did you have a dental problem in the last 6 months where you did not have access to dental care?: No Was dental information given to patient?: Patient has dentist HPI Neck/Back Pain~ 2 HPI0 Details Patient is 22-year-old female came in today to be evaluated for ongoing lower neck upper back pain Patient has tried taking muscle relaxer, NSAIDs and has gone through physical therapy but still pain Her pain is located over lower cervical upper thoracic area and is tender with pressure both side of spine She is able to lift both arms without any discomfort There is no tingling numbness in her hands on weakness in her arms On examination her neck is supple I have placed referral to [facility] for further management There is no baseline imaging in the chart she will have x-ray of her neck and thoracic spine today [facility] Medical History No known health problems Social History Housing: House Alcohol intake: current Alcohol intake frequency: holidays/special occasions only Patient Tobacco Use Status: Never used Tobacco e-Cigarette/Vaping Use: Never Used Current occupational status: employed Gender identity: Female Cognitive needs: No Hearing needs: No Vision needs: Yes Female Reproductive History Menstrual Age of Menarche: 11 Questionnaire PHQ-9 Over the last 2 weeks, how often have you been bothered by any of the following problems? 1. Little interest or pleasure in doing things: not at all 2. Feeling down, depressed, or hopeless: not at all 3. Trouble falling or staying asleep, or sleeping too much: not at all 4. Feeling tired or having little energy: not at all 5. Poor appetite or overeating: not at all 6. Feeling bad about yourself - or that you are a failure or have let yourself or your family down: not at all 7. Trouble concentrating on things, such as reading the newspaper or watching television: not at all 8. Moving or speaking so slowly that other people could have noticed. Or the opposite - being so fidgety or restless that you have been moving around a lot more than usual: not at all 9. Thoughts that you would be better off or of hurting yourself in some way: not at all Total score: 0 Depression Screening Interpretation: Negative Depression Screening Done: Yes 98794 - PHQ-9 Billing: Yes Source: Developed by Drs. Nabeel Lyon, Kath Walsh, Austin Aguilar and colleagues, with an educational roxy from [employer]. Thrive Questionnaire Date Thrive assessed: 04/26/23 I am a: Patient What is your living situation today?: I have a steady place to live Within the past 12 months, did the food you bought not last and you didn't have the money to get more?: Never true Within the past 12 months, did you worry whether your food would run out before you got money to buy more?: Never true Do you have trouble paying for medicines?: No Do you have trouble getting transportation to medical appointments?: No Do you have trouble paying your heating and electricity bill?: No Do you have trouble taking care of your child, family member or friend?: No Do you have trouble with day-to-day activities such as bathing, preparing meals, shopping, managing finances, etc.?: No Are you currently unemployed and looking for a job?: No Are you interested in more education?: No Please select the resources that you would like help with: None Currently or been in a relationship where the following occur: no concerns reported THRIVE Score: 0 AUDIT C Alcohol Use Questionnaire (AUDIT-C) 1. How often do you have a drink containing alcohol?: Monthly or less 2. How many drinks containing alcohol do you have on a typical day when you are drinking?: 1 or 2 3. How often do you have six or more drinks on one occasion?: Never Total Score: 1 Score Reviewed/Action Taken: Yes JANENE-7 AMB Questionnaire JANENE-7 Date JANENE - 7 assessed: 04/26/23 Feeling nervous, anxious, or on edge: 1 = Several days Not being able to stop or control worryin = Several days Worrying too much about different things: 1 = Several days Trouble relaxin = Not at all Being so restless that it is hard to sit still: 0 = Not at all Becoming easily annoyed or irritable: 0 = Not at all Feeling afraid as if something awful might happen: 0 = Not at all Total JANENE-7 score (0-4 normal; 5-9 mild; 10-14 moderate; 15-21 severe): 3 Source: Developed by Drs. Nabeel Lyon, Kath Walsh, Austin Aguilar and colleagues, with an educational roxy from [employer]. JANENE-7 Assessment Billing JANENE-7 Assessment Tool: JANENE-7 Assessment 55182 Review of Systems Const Denies chills and Denies fever(s) ENT Denies epistaxis and Denies nasal discharge Card Denies chest pain Resp Denies chest congestion, Denies cough and Denies hemoptysis GI Denies diarrhea and Denies nausea Skin/Breast Denies rash Neuro Reports no additional complaints Psych Reports no additional complaints Endo Reports no additional complaints Physical exam (Primary Care) Vital Signs: Last Vital Signs Pulse 98 04/26/23 13:10 BP 126/70 04/26/23 13:10 Pulse Ox 100 04/26/23 13:10 Oxygen Delivery Method Room Air 04/26/23 13:10 BMI result Body Mass Index 30.3 Tobacco/Smoking Status: Tobacco use Status Tobacco use date assessed 04/26/23 04/26/23 13:11 Patient Tobacco Use Status Never used Tobacco 04/26/23 13:11 e-Cigarette/Vaping Use Never Used 04/26/23 13:11 PHQ-9: PHQ-9 Score PHQ-9: Total score 0 04/26/23 13:18 Depression Screening Interpretation: Negative Thrive Assessment: Date of Thrive Assessment Date Thrive assessed 04/26/23 04/26/23 13:18 Currently or been in a relationship where the following occur: no concerns reported Const General: cooperative, comfortable and no acute distress Orientation/consciousness: patient oriented x3 HENMT Head: Yes normocephalic Eyes General: appearance normal, both eyes and all related structures Neck Neck: Yes supple Resp Effort & Inspection: normal respiratory effort, no cough and no stridor Cardio Heart sounds: S1 normal heart sound present and S2 normal heart sound present Back/Spine/Pelvis Back/spine/pelvis image: 2 1. Pain with pressure 2. Pain with pressure Skin General skin exam: turgor normal Neuro General: patient oriented x3, tone normal and moves all extremities Extrem Right lower extremity: no edema Left lower extremity: no edema Assessment and Plan Assessment & Plan (1) Neck strain: Code(s): S16.1XXA - Strain of muscle, fascia and tendon at neck level, initial encounter Qualifiers: Encounter type: initial encounter Qualified Code(s): S16.1XXA - Strain of muscle, fascia and tendon at neck level, initial encounter (2) Mid-back pain, acute: Code(s): M54.9 - Dorsalgia, unspecified Plan Patient is 22-year-old female came in today to be evaluated for ongoing lower neck upper back pain Patient has tried taking muscle relaxer, NSAIDs and has gone through physical therapy but still pain Her pain is located over lower cervical upper thoracic area and is tender with pressure both side of spine She is able to lift both arms without any discomfort There is no tingling numbness in her hands on weakness in her arms On examination her neck is supple I have placed referral to [facility] for further management There is no baseline imaging in the chart she will have x-ray of her neck and thoracic spine today Orders: Orders 2 XR cervical spine 2V Today M54.9 - Dorsalgia, unspecified, S16.1XXA - Strain of muscle, fascia and tendon at neck level, initial encounter XR thoracic spine 2V Today M54.9 - Dorsalgia, unspecified, S16.1XXA - Strain of muscle, fascia and tendon at neck level, initial encounter Referrals 2 Pain Management Referral M54.9 - Dorsalgia, unspecified, S16.1XXA - Strain of muscle, fascia and tendon at neck level, initial encounter Coding Level of Care Code Est Pt Level 3 (20403) Diagnoses Strain of neck muscle, initial encounter S16.1XXA Encounter type: initial encounter Mid-back pain, acute M54.9 Additional Codes JANENE-7 Assessment Billing - JANENE-7 Assessment Tool: JANENE-7 Assessment [id number] ([id number])
== END 2023-04-26 16:18 | disposition home or self-care (01) ==
PROVIDERS: PCP Internal Medicine; Visit Provider Internal Medicine
DX: S16.1XXA Strain of muscle, fascia and tendon at neck level, initial encounter (principal); M54.9 Dorsalgia, unspecified
CPT/HCPCS: 99213

== ENCOUNTER 2023-04-26 13:26 | Outpatient (REF) | payer OTHER, SELFPAY ==
--- NOTE | ~2023-04-26 | XR_ITS ---
EXAMINATION: XR CERVICAL SPINE XR THORACIC SPINE CLINICAL INFORMATION: Strain of muscle, fascia and tendon neck level, initial encounter. Back pain. COMPARISON: 1 view x-ray chest of 03/07/2020 radiograph. Scoliosis radiograph of 2013. TECHNIQUE: 3 views of the cervical spine. 3 views of the thoracic spine. FINDINGS: CERVICAL SPINE: Straightening and slight reversal of the cervical lordosis. Disc space heights are preserved. Minimal anterolisthesis of C2 on C3, C3 on C4 and C4 on C5. Mild spondylosis with loss of disc space height at C4-C5. THORACIC SPINE: Mild rightward curvature of the [id number]-bm-[id number] thoracic spine. Mild multilevel degenerative changes in the thoracic spine. XR/XR cervical spine 2V IMPRESSION: 1. Mild spondylosis at C4-C5. 2. Mild multilevel degenerative changes in the thoracic spine.
--- NOTE | ~2023-04-26 | XR_ITS ---
EXAMINATION: XR CERVICAL SPINE XR THORACIC SPINE CLINICAL INFORMATION: Strain of muscle, fascia and tendon neck level, initial encounter. Back pain. COMPARISON: 1 view x-ray chest of 03/07/2020 radiograph. Scoliosis radiograph of 2013. TECHNIQUE: 3 views of the cervical spine. 3 views of the thoracic spine. FINDINGS: CERVICAL SPINE: Straightening and slight reversal of the cervical lordosis. Disc space heights are preserved. Minimal anterolisthesis of C2 on C3, C3 on C4 and C4 on C5. Mild spondylosis with loss of disc space height at C4-C5. THORACIC SPINE: Mild rightward curvature of the [id number]-tt-luviu thoracic spine. Mild multilevel degenerative changes in the thoracic spine. XR/XR thoracic spine 2V IMPRESSION: 1. Mild spondylosis at C4-C5. 2. Mild multilevel degenerative changes in the thoracic spine.
== END 2023-04-26 13:27 | disposition home or self-care (01) ==
LOC: HO.HMGCX 13:26
PROVIDERS: PCP Internal Medicine; Visit Provider Internal Medicine
DX: S16.1XXA Strain of muscle, fascia and tendon at neck level, initial encounter (principal); M54.9 Dorsalgia, unspecified
CPT/HCPCS: 72040; 72070

== ENCOUNTER 2023-05-16 09:37 | Outpatient (REF) | payer OTHER, SELFPAY | END 2023-05-16 09:38 | disposition home or self-care (01) | LOC: HO.LAB 09:37 | PROVIDERS: PCP Internal Medicine; Visit Provider Advanced Practice Midwife | DX: Z01.419 Encounter for gynecological examination (general) (routine) without abnormal findings (principal) | CPT/HCPCS: 88142 ==

== ENCOUNTER 2023-05-16 09:37 | Outpatient (AMB) | payer OTHER, SELFPAY ==
--- NOTE | 2023-05-16 09:49 | MHC.OFFVIS ---
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 she does not get her period, says she has not had any negative side effects either no weight gain or other problems at all. 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 She has not worried about STDs but is accepting of testing. She works out on the treadmill every other day as well as other very active exercise. FORMERLY [facility], [facility] Medical History No known health problems Social History Housing: House Alcohol intake: current Alcohol intake frequency: holidays/special occasions only Patient Tobacco Use Status: Never used Tobacco e-Cigarette/Vaping Use: Never Used Current occupational status: employed Gender identity: Female Cognitive needs: No Hearing needs: No Vision needs: Yes Female Reproductive History Menstrual Age of Menarche: 11 Duration of menses: 3-5 days control method: implanted Total pregnancies: 0 History of abnormal pap smear: No (no previous pap) Physical Exam Vital Signs: Last Vital Signs BP 110/60 05/16/23 09:50 BMI result Body Mass Index 30.1 Const Other: Some increased hirsute is Um evident General: healthy appearing, comfortable, no acute distress, well developed and alert Nutritional Appearance: average body habitus Orientation/consciousness: patient oriented x3 Limitations: no limitations HEENT Head: Yes normocephalic Neck Neck: Yes normal visual inspection Chest Chest palpation & inspection: normal inspection of the chest Breast/axilla inspection: normal inspection of the breasts and normal inspection of the axillae Breast/axilla palpation: normal palpation of the breasts and normal palpation of the axillae Resp Effort & Inspection: normal respiratory effort GI Inspection: Yes normal to inspection, No Abdominal wall edema and No distended Palpation (GI): Soft to palpation and nontender Other: Entire vulva that would be covered by panty liner is bright pink patient does admit to some itching and a little bit of burning. She does wear panty liners. Teaching done about this vagina pink also inflamed mucosa dry and with some flecks of white discharge consistent with yeast nulliparous cervix pink smooth mobile nontender very deep in pelvis patient has very strong muscle tone so bimanual challenging but normal uterus mobile nontender adnexa nontender not enlarged very good very good tone. General: Yes bladder normal to palpation External Female Exam: normal external appearance and normal appearance of the urethra Speculum Exam - Vagina: normal appearance of the vagina, normal palpation and normal vaginal discharge Speculum Exam - Cervix: normal appearance of the cervix, normal palpation and nontender Bimanual exam- vagina & uterus: normal bimanual exam, normal palpation, uterine size normal, bladder normal to palpation, consistency normal, normal palpation, uterine mobility normal, uterine shape normal, No Cervical tenderness present, non-tender and no cervical motion tenderness Bimanual Exam- Adnexa, other: normal adnexae, no masses, normal and No adnexal tenderness Neuro General: patient oriented x3 Assessment & Plan Assessment & Plan (1) Routine gynecological examination: Code(s): Z01.419 - Encounter for gynecological examination (general) (routine) without abnormal findings (2) Cervical cancer screening: Code(s): Z12.4 - Encounter for screening for malignant neoplasm of cervix (3) Yeast infection involving the vagina and surrounding area: Comment: From panty liner use. Code(s): B37.31 - Acute candidiasis of vulva and vagina (4) Encounter for monitoring of etonogestrel implant: Comment: States it is due for exchange in January of 2024. Patient would like replacement when due. Patient to call and then sign for new one beforehand. Code(s): Z30.46 - Encounter for surveillance of implantable subdermal contraceptive Plan -----Discussed in this visit the following: healthy balanced diet, regular and consistent exercise, getting recommended health screens, doing the best she can for her particular health concerns, kegel exercises, pap smear screening and followup recommendations, mammography screening and SBE, normal changes in cycles in her life stage--- .----I reviewed available options for Control Methods and their associated side effect profiles. In particular, we discussed the method most of interest to her. I recommend she call the office and come in and sign the paperwork to water a new 1 closer to the time that it needs to be replaced if per chance she does not get to replace it on time I recommend condom use. -discussed yeast and the role of panty liners and covering up of her vulva consistently and how it promotes yeast. Recommend stopping panty liner use being aware of her use of her workout clothes and Lycra tights etc. and offered cream for the yeast and will send it to her pharmacy in teaching done about it RTC 1 year I also offered to order other lab work for STI testing and she is interested so it is ordered and she is on the portal and can get her results that way.. Orders: Orders HIV Ab/Ag Today B37.31 - Acute candidiasis of vulva and vagina, Z01.419 - Encounter for gynecological examination (general) (routine) without abnormal findings, Z12.4 - Encounter for screening for malignant neoplasm of cervix Hepatitis B Surface Antigen Today B37.31 - Acute candidiasis of vulva and vagina, Z01.419 - Encounter for gynecological examination (general) (routine) without abnormal findings, Z12.4 - Encounter for screening for malignant neoplasm of cervix Hepatitis C Antibody Today B37.31 - Acute candidiasis of vulva and vagina, Z01.419 - Encounter for gynecological examination (general) (routine) without abnormal findings, Z12.4 - Encounter for screening for malignant neoplasm of cervix Syphilis Screen Today B37.31 - Acute candidiasis of vulva and vagina, Z01.419 - Encounter for gynecological examination (general) (routine) without abnormal findings, Z12.4 - Encounter for screening for malignant neoplasm of cervix Medications: New miconazole nitrate 2% (Miconazole-7) 1 appful vaginal BEDTIME 7 days 45 grams 1RF Coding Level of Care Code Est Pt Prev Care 18-39y(87494) Diagnoses Routine gynecological examination Z01.419 Cervical cancer screening Z12.4 Yeast infection involving the vagina and surrounding area B37.31 Encounter for monitoring of etonogestrel implant Z30.46
[2023-05-16 09:50] VITALS: BP 110/60; BMI 30.1
== END 2023-05-16 10:39 | disposition home or self-care (01) ==
LOC: HO.HWSM 09:38
PROVIDERS: PCP Internal Medicine; Visit Provider Advanced Practice Midwife
DX: Z01.419 Encounter for gynecological examination (general) (routine) without abnormal findings (principal); Z12.4 Encounter for screening for malignant neoplasm of cervix; B37.31 Acute candidiasis of vulva and vagina; Z30.46 Encounter for surveillance of implantable subdermal contraceptive
CPT/HCPCS: 99395

== ENCOUNTER 2023-05-16 10:34 | Outpatient (REF) | payer OTHER, SELFPAY ==
[2023-05-16 12:12] LABS: Syphilis Screen Nonreactive (Nonreactive)
[2023-05-16 12:13] LABS: HIV AB/AG Nonreactive (Nonreactive); HIV Num 1 0.04 S/CO (0.00-0.99); Hepatitis B Surface Antigen Negative (Negative); ~HepC Num1 0.22 S/CO (0.00-0.79); ~Hepatitis C Antibody Nonreactive (Nonreactive)
[2023-05-17 12:00] LABS: CT PCR NOT DETECTED (Not Detect.); NG PCR NOT DETECTED (Not Detect.)
[2023-05-17 13:57] LABS: BV Int Neg Control Negative (Negative); BV Int Pos Control Positive (Positive)
== END 2023-05-16 10:35 | disposition home or self-care (01) ==
LOC: HO.HHCL 10:34
PROVIDERS: Visit Provider Advanced Practice Midwife
DX: Z01.419 Encounter for gynecological examination (general) (routine) without abnormal findings (principal); Z11.4 Encounter for screening for human immunodeficiency virus [HIV]; Z20.2 Contact with and (suspected) exposure to infections with a predominantly sexual mode of transmission; B37.31 Acute candidiasis of vulva and vagina
CPT/HCPCS: 0353U; 36415; 86780; 86803; 87340; 87389; 87480; 87510; 87660; 99395

== ENCOUNTER 2023-07-19 07:55 | Outpatient (REF) | payer OTHER, SELFPAY ==
[2023-07-19 11:12] LABS: Alanine Aminotransferase 31 U/L (0-31); Albumin Level 4.1 g/dL (3.5-5.0); Alkaline Phosphatase 123 U/L (39-117); Aspartate Amino Transferase 22 U/L (5-31); Bilirubin Direct 0.2 mg/dL (0.0-0.5); Bilirubin Total 0.4 mg/dL (0.0-1.0); Total Protein 6.7 g/dL (6.5-8.0)
[2023-07-21 21:42] LABS: TS Negative Control Passed; TS Panel A 2; TS Panel B 1; TS Positive Control Passed; TSpotTB Negative (Negative)
== END 2023-07-19 07:56 | disposition home or self-care (01) ==
LOC: HO.HMGCLDS 07:55
PROVIDERS: PCP Internal Medicine; Visit Provider Internal Medicine
DX: R79.89 Other specified abnormal findings of blood chemistry (principal); Z11.1 Encounter for screening for respiratory tuberculosis
CPT/HCPCS: 36415; 80076; 86481

== ENCOUNTER 2024-01-06 10:22 | Outpatient (REF) | payer OTHER, SELFPAY | END 2024-01-06 10:23 | disposition home or self-care (01) | LOC: HO.LAB 10:22 | PROVIDERS: PCP Internal Medicine; Visit Provider Advanced Practice Midwife | DX: Z30.09 Encounter for other general counseling and advice on contraception (principal); Z30.46 Encounter for surveillance of implantable subdermal contraceptive | CPT/HCPCS: 11982; 81025; 99212 ==

== ENCOUNTER 2024-01-06 10:22 | Outpatient (AMB) | payer OTHER, SELFPAY ==
[2024-01-06 10:59] VITALS: BP 110/62; BMI 31.2
--- NOTE | 2024-01-06 10:59 | MHC.OFFVIS ---
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 It is due to be replaced this month. the patient very clear at the last visit in May that she likes method, and would want to replace it when the time came. Today she says she has decided to have it removed and she would use condoms from now on and if she gets she would get and she would be okay with the. She is engaged and planning to get in 2 years. She is healthy and does not have any other health concerns and she takes every day. She would like her periods to return to normal she used to get regular periods before having the Nexplanon put in but her periods have gone away with the Nexplanon.. She does thinks she has gained a little bit of weight but also she has been her partner in a steady relationship couple of years as well. [facility] Medical History No known health problems Social History Housing: House Alcohol intake: current Alcohol intake frequency: holidays/special occasions only Patient Tobacco Use Status: Never used Tobacco e-Cigarette/Vaping Use: Never Used Current occupational status: employed Gender identity: Female Cognitive needs: No Hearing needs: No Vision needs: Yes Female Reproductive History Menstrual Age of Menarche: 11 Duration of menses: <3 days control method: implanted Total pregnancies: 0 Date of last pap smear: 05/17/23 (negative) Physical Exam Vital Signs: Last Vital Signs BP 110/62 01/06/24 10:59 BMI result Body Mass Index 31.2 Office Procedures Contraception Insert/Removal Details Details: Nexplanon Removal Procedure The patient was placed in a supine position with her non dominant hand resting under her head. The insertion site was located: 8-10cm from the medial epicondyle notch of the humerus, posterior to the sulcus, between the triceps and biceps muscle. The area of the previous implant was identified and the distal tip located. This area was cleansed with an alcohol prep and 2 ml of 2% Lidocaine on a 25 gauge needle and syringe was utilized for adequate anesthesia to the insertion site. After ascertaining adequate anesthesia, the area was prepped with Betadine solution. The skin over the distal tip was incised with a #11 blade scalpel and the capsule was located and entered freeing the implant from the canal. The implant was removed with a gentle tug using a mosquito clamp and removed intact. Direct pressure was applied to the insertion site for hemostasis, minimal bleeding was observed. Steri strips, Tegaderm covering, gauze pads, and Eileen wrap dressing were secured with paper tape. The implant was palpable underneath the skin by myself and the patient. The patient tolerated the procedure well and left the office in good condition. It was a very simple uncomplicated removal. [id number] - Removal Results AMB Test Urine AMB Test Urine Negative Last Edit by Andres Cadena CMA on 01/06/24 11:28 Results Reviewed Results Reviewed: Laboratory Last Values [facility]st Clinic Negative 01/06/24 11:26 Assessment & Plan Assessment & Plan (1) control counseling: Code(s): Z30.09 - Encounter for other general counseling and advice on contraception Category: Medical (2) Encounter for monitoring of etonogestrel implant: Comment: States it is due for exchange in January of 2024. Patient would like replacement when due. Patient to call and then sign for new one beforehand. Code(s): Z30.46 - Encounter for surveillance of implantable subdermal contraceptive Category: Medical Plan Please see the procedure section for the count of the was fairly easy removal in that it is slipped easily was the capsule able to be entered. Teaching was done with the patient about returned is which can be variable therefore the return to fertility the condom use recommended food discussed that menses do start to return that is an opportunity these her to about her list a cycles and ovulation and fertile times for future child use in teaching use does about changes of the menstrual cycle to watch for ovulation etc. 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 She has her annual exam set up. With the med she leave pressure dressing several hours today the Tegaderm Steri-Strips for 3 days she is in shower with that it was done under sterile conditions I do not anticipate any problems, it if she experienced any she would want to seek care Orders: Orders AMB HCG Urine Test Today Z32.02 - Encounter for test, result negative AMB Nexplanon/Implanon Insertion - Patient Supply Today Z30.09 - Encounter for other general counseling and advice on contraception, Z30.46 - Encounter for surveillance of implantable subdermal contraceptive Coding Level of Care Code Est Pt Level 3 (64523) Diagnoses control counseling Z30.09 Encounter for monitoring of etonogestrel implant Z30.46 CPT Codes Details - Contraception: 29514 - Removal ([id number])
== END 2024-01-06 13:15 | disposition home or self-care (01) ==
LOC: HO.HWSM 10:23
PROVIDERS: PCP Internal Medicine; Visit Provider Advanced Practice Midwife
DX: Z30.09 Encounter for other general counseling and advice on contraception (principal); Z30.46 Encounter for surveillance of implantable subdermal contraceptive; Z32.02 Encounter for pregnancy test, result negative
CPT/HCPCS: 11982; 99213

== ENCOUNTER 2024-03-18 10:19 | Outpatient (REF) | payer OTHER, SELFPAY ==
[2024-03-18 13:04] LABS: MANUAL DIFF FLAG NO
[2024-03-18 13:13] LABS: Basophils Absolute Auto 0.1 X10*3/uL (0.0-0.2); Basophils Percent Auto 0.6 % (0-2); Eosinophils Absolute Auto 1.6 X10*3/uL (0.0-0.4); Hematocrit 42.9 % (37.0-47.0); Hemoglobin 14.1 g/dl (12.0-16.0); Imm Gran Abs Auto 0.02 X10*3/uL (0.00-0.03); Imm Gran Pct Auto 0.2 % (0.0-0.4); Lymphocytes Absolute Auto 2.9 X10*3/uL (1.2-4.9); Lymphocytes Percent Auto 28.1 % (20-40); Mean Corpuscular HGB Conc 32.9 g/dl (31.0-35.0); Mean Corpuscular Hemoglobin 28.8 pg (27.0-33.0); Mean Corpuscular Volume 87.7 fL (80.0-98.0); Mean Platelet Volume 9.9 fL (9.4-12.3); Monocytes Absolute Auto 0.7 X10*3/uL (0.1-1.2); Monocytes Percent Auto 6.5 % (2-11); Neutrophils Absolute Auto 5.2 x10*3/uL (2.0-8.3); Neutrophils Percent Auto 49.6 % (45-73); Platelet Count 315 X10*3/uL (160-400); Red Blood Count 4.89 X10*6/uL (4.20-5.50); Red Cell Distribution Width 12.9 % (11.0-16.0); White Blood Count 10.4 X10*3/uL (4.8-10.8)
[2024-03-18 13:38] LABS: Alanine Aminotransferase 54 U/L (0-31); Albumin Level 4.1 g/dL (3.5-5.0); Alkaline Phosphatase 177 U/L (39-117); Anion Gap 7 (12-20); Aspartate Amino Transferase 36 U/L (5-31); Bilirubin Total 0.2 mg/dL (0.0-1.0); Blood Urea Nitrogen 14 mg/dL (9-16); Calcium 9.6 mg/dL (8.4-10.2); Carbon Dioxide 29 mmol/L (22-29); Chloride 108 mmol/L (96-108); Estimated Glomerular Filt Rate > 60; Glucose Random 64 mg/dL (60-115); Potassium 4.4 mmol/L (3.3-5.1); Sodium 140 mmol/L (135-145); Total Protein 7.1 g/dL (6.5-8.0)
[2024-03-23 15:32] LABS: Vitamin D 25-OH, D2 <4 ng/mL; Vitamin D 25-OH, D3 27 ng/mL; Vitamin D 25-OH, Total 27 ng/mL (30-100)
== END 2024-03-18 10:20 | disposition home or self-care (01) ==
LOC: HO.HMGCLDS 10:19
PROVIDERS: PCP Internal Medicine; Visit Provider Internal Medicine
DX: Z00.00 Encounter for general adult medical examination without abnormal findings (principal); G44.89 Other headache syndrome; E66.09 Other obesity due to excess calories; Z68.31 Body mass index [BMI] 31.0-31.9, adult
CPT/HCPCS: 36415; 80053; 82306; 84443; 85025; 96127; 99212; 99395

== ENCOUNTER 2024-03-18 10:19 | Outpatient (AMB) | payer OTHER, SELFPAY ==
[2024-03-18 10:23] VITALS: BP 112/68; PULSE 71; O2SAT 95; BMI 31.3
--- NOTE | 2024-03-18 10:23 | A.OFFPC_ITS ---
Vital Signs 03/18/24 10:23 Height 5 ft Weight 160 lb 2 oz BMI 31.3 BP 112/68 Blood Pressure Location Lt brachial Position Sitting Pulse 71 Pulse Source Pulse Oximeter Pulse Oximetry (%) 95 Oxygen Delivery Method Room Air Intake Visit Reasons: Annual PE Allergies No Known Allergies Allergy (Verified 03/18/24 10:23) Medication List - Last Reconciled 03/18/24 by Kelly Kamara MD No Known Home Meds Tobacco use date assessed: 03/18/24 Dental Screening Dental Screen Date: 03/18/24 Did you have a dental visit in the last 12 months?: Yes Did you have a dental problem in the last 6 months where you did not have access to dental care?: No Was dental information given to patient?: Patient has dentist HPI Annual PE HPI Details Physical exam appointment - The patient is a 23-year-old female pr esenting for a routine physical examination. - The patient reports long-standing diff iculty with weight management and has been making efforts including going to the gym and eating healthily but continues to struggle with weight loss. - There have been recurrent migraine hea daches since her school years, characterized by right-sided pressure, photophobia, lasting an entire day, and improved by analgesics and sleep. - The migraine episodes currently occur around three times per month. - The patient?s alkaline phosphatase was noted to be elevated in laboratory results from last year. Health Maintenance - Tetanus vaccine is up to date. - Discussion about diet, exercise, and c alorie management for weight control. - Mention of seeing a dietitian for [facility] weight management strategies. - Importance of regular meal timing to p revent migraines, including suggestions for having meals in portions. - Sufficient sleep to decrease migraine frequency. 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 Diagnostic results - Labs: Elevated alkaline phosphatase fr om the previous year. Patient Instructions - Consider dietary modifications to flavio ge weight, such as using calorie calculators and meal planning. - Consider warm liquids like soup before main meals to manage portion sizes. - Monitor headache frequency and conside r keeping a headache diary. - Schedule an appointment with a dietiti an - Repeat alkaline phosphatase lab work. - Consider obtaining a calorie managemen t resource and calculate calorie needs for desired weight loss. - start amitriptyline 10 mg at night Review of Systems - General: Denies any current general he alth issues. - Neurological: Reports headaches consis tent with migraines three times a month. - Gastrointestinal: Denies digestive iss ues. - Musculoskeletal: Denies joint pain. - Ear nose throat: No sore throat no hearing difficulty no ear pain - Cardiovascular: No syncope, no chest pain, no palpitations - Endocrine: No polyuria polydipsia no heat intolerance - Genitourinary: No dysuria - Skin: No new complaints Physical Exam General: Cooperative, healthy appearing, comfortable, no acute distress Orientation: Patient oriented x3 Limitations: None Head: Normal to inspection Ears: Within normal limit visually Nose: Normal external nose present Face and sinus: Normal facial exam Eyes: Appearance normal, extraocular movement intact pupils reactive Neck: Normal visual inspection and supple Respiratory: Normal respiratory effort and able to speak in complete sentences. Clear to auscultation, no stridor Breast exam is through OBGYN Cardiovascular: S1 and S2 GI: Normal to inspection. Soft to palpation and nontender Skin: Turgor normal, no acute findings Neuro: Patient oriented x3, motor sensory intact, balance intact, tandem pass Extremities: Normal to inspection, no joint issues noted [facility] Medical History No known health problems Social History Housing: House Alcohol intake: current Alcohol intake frequency: holidays/special occasions only Patient Tobacco Use Status: Never used Tobacco e-Cigarette/Vaping Use: Never Used service: No Current occupational status: employed Gender identity: Female Cognitive needs: No Hearing needs: No Vision needs: Yes Female Reproductive History Menstrual Age of Menarche: 11 Questionnaire PHQ-9 Over the last 2 weeks, how often have you been bothered by any of the following problems? 1. Little interest or pleasure in doing things: not at all 2. Feeling down, depressed, or hopeless: not at all 3. Trouble falling or staying asleep, or sleeping too much: not at all 4. Feeling tired or having little energy: not at all 5. Poor appetite or overeating: not at all 6. Feeling bad about yourself - or that you are a failure or have let yourself or your family down: not at all 7. Trouble concentrating on things, such as reading the newspaper or watching te levision: not at all 8. Moving or speaking so slowly that other people could have noticed. Or the opposite - being so fidgety or restless that you have been moving around a lot more than usual: not at all 9. Thoughts that you would be better off or of hurting yourself in some way: not at all Total score: 0 Depression Screening Interpretation: Negative Depression Screening Done: Yes 94654 - PHQ-9 Billing: Yes Source: Developed by Drs. Nabeel Lyon, Kath Walsh, Austin Aguilar and colleagues, with an educational roxy from [employer]. Thrive Questionnaire Date Thrive assessed: 03/18/24 I am a: Patient What is your living situation today?: I have a steady place to live Within the past 12 months, did the food you bought not last and you didn't have the money to get more?: Never true Within the past 12 months, did you worry whether your food would run out before you got money to buy more?: Never true Do you have trouble paying for medicines?: No Do you have trouble getting transportation to medical appointments?: No Do you have trouble paying your heating and electricity bill?: No Do you have trouble taking care of your child, family member or friend?: No Do you have trouble with day-to-day activities such as bathing, preparing meals, shopping, managing finances, etc.?: No Are you currently unemployed and looking for a job?: No Are you interested in more education?: Yes Please select the resources that you would like help with: None Currently or been in a relationship where the following occur: No concerns reported THRIVE Score: 0 AUDIT C Alcohol Use Questionnaire (AUDIT-C) 1. How often do you have a drink containing alcohol?: Monthly or less 2. How many drinks containing alcohol do you have on a typical day when you are drinking?: 1 or 2 3. How often do you have six or more drinks on one occasion?: Never Total Score: 1 Score Reviewed/Action Taken: Yes JANENE-7 AMB Questionnaire JANENE-7 Date JANENE - 7 assessed: 03/18/24 Feeling nervous, anxious, or on edge: 0 = Not at all Not being able to stop or control worryin = Not at all Worrying too much about different things: 0 = Not at all Trouble relaxin = Not at all Being so restless that it is hard to sit still: 0 = Not at all Becoming easily annoyed or irritable: 0 = Not at all Feeling afraid as if something awful might happen: 0 = Not at all Total JAENNE-7 score (0-4 normal; 5-9 mild; 10-14 moderate; 15-21 severe): 0 Source: Developed by Drs. Nabeel Lyon, Kath Walsh, Austin Aguilar and colleagues, with an educational roxy from [employer]. JANENE-7 Assessment Billing JANENE-7 Assessment Tool: JANENE-7 Assessment 24303 Physical exam (Primary Care) Vital Signs: Last Vital Signs Pulse 71 03/18/24 10:23 BP 112/68 03/18/24 10:23 Pulse Ox 95 03/18/24 10:23 Oxygen Delivery Method Room Air 03/18/24 10:23 BMI result Body Mass Index 31.3 Tobacco/Smoking Status: Tobacco use Status Tobacco use date assessed 03/18/24 03/18/24 10:24 Patient Tobacco Use Status Never used Tobacco 03/18/24 10:24 e-Cigarette/Vaping Use Never Used 03/18/24 10:24 PHQ-9: PHQ-9 Score PHQ-9: Total score 0 03/18/24 10:54 Depression Screening Interpretation: Negative Thrive Assessment: Date of Thrive Assessment Date Thrive assessed 03/18/24 03/18/24 10:33 Currently or been in a relationship where the following occur: No concerns reported Coding Level of Care Code Est Pt Level 3 (56721) Est Pt Prev Care 18-39y(86575) Diagnoses Encounter for general adult medical examination without abnormal findings Z00.00 Headache syndrome G44.89 Class 1 obesity due to excess calories without serious comorbidity with body mass index (BMI) of 31.0 to 31.9 in adult E66.811; E66.09; Z68.31 Obesity classification: adult class 1 (BMI 30 - 34.9) Serious obesity comorbidity presence: without serious comorbidity Body mass index: BMI 31.0-31.9 Additional Codes JANENE-7 Assessment Billing - JANENE-7 Assessment Tool: JANENE-7 Assessment 98494 ([id number]) PHQ-9 - 96945 - PHQ-9 Billing: Yes ([id number]) Assessment & Plan Assessment & Plan (1) Encounter for general adult medical examination without abnormal findings: Code(s): Z00.00 - Encounter for general adult medical examination without abnormal findings Category: Medical (2) Headache syndrome: Code(s): G44.89 - Other headache syndrome Category: Medical (3) Obesity due to excess calories: Code(s): E66.09 - Other obesity due to excess calories Category: Medical Qualifiers: Obesity classification: adult class 1 (BMI 30 - 34.9) Serious obesity comorbidity presence: without serious comorbidity Body mass index: BMI 31.0- 31.9 Qualified Code(s): E66.811 - Obesity, class 1; E66.09 - Other obesity due to excess calories; Z68.31 - Body mass index [BMI] 31.0-31.9, adult Plan Physical exam appointment - The patient is a 23-year-old female presenting for a routine physical examination. - The patient reports long-standing difficulty with weight management and has been making efforts including going to the gym and eating healthily but continues to struggle with weight loss. - There have been recurrent migraine headaches since her school years, characterized by right-sided pressure, photophobia, lasting an entire day, and improved by analgesics and sleep. - The migraine episodes currently occur around three times per month. - The patient?s alkaline phosphatase was noted to be elevated in laboratory results from last year. Health Maintenance - Tetanus vaccine is up to date. - Discussion about diet, exercise, and calorie management for weight control. - Mention of seeing a dietitian for better weight management strategies. - Importance of regular meal timing to prevent migraines, including suggestions for having meals in portions. - Sufficient sleep to decrease migraine frequency. 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 Diagnostic results - Labs: Elevated alkaline phosphatase from the previous year. Patient Instructions - Consider dietary modifications to manage weight, such as using calorie calculators and meal planning. - Consider warm liquids like soup before main meals to manage portion sizes. - Monitor headache frequency and consider keeping a headache diary. - Schedule an appointment with a dietitian - Repeat alkaline phosphatase lab work. - Consider obtaining a calorie management resource and calculate calorie needs for desired weight loss. - start amitriptyline 10 mg at night Telemedicine visit in 3 weeks and physical exam in 1 year Orders: Orders TSH reflex Free T4 Today E66.09 - Other obesity due to excess calories, G44.89 - Other headache syndrome, Z00.00 - Encounter for general adult medical exami nation without abnormal findings Vitamin D 25-OH (D2 and D3) Today E66.09 - Other obesity due to excess calories, G44.89 - Other headache syndrome, Z00.00 - Encounter for general adult medical examination without abnormal findings Complete Blood Count Auto Diff Today E66.09 - Other obesity due to excess calories, G44.89 - Other headache syndrome, Z00.00 - Encounter for general adult medical examination without abnormal findings Comprehensive Met. Panel Today E66.09 - Other obesity due to excess calories, G44.89 - Other headache syndrome, Z00.00 - Encounter for general adult medical examination without abnormal findings Referrals [facility] Referral E66.09 - Other obesity due to excess calories Medications: New amitriptyline 10 mg PO BEDTIME 30 tabs 0RF
== END 2024-03-18 10:56 | disposition home or self-care (01) ==
PROVIDERS: PCP Internal Medicine; Visit Provider Internal Medicine
DX: Z00.00 Encounter for general adult medical examination without abnormal findings (principal); G44.89 Other headache syndrome; E66.811 Obesity, class 1; Z68.31 Body mass index [BMI] 31.0-31.9, adult

== ENCOUNTER 2024-03-26 08:12 | Outpatient (REF) | payer OTHER, SELFPAY ==
--- NOTE | ~2024-03-26 | XR_ITS ---
EXAMINATION: XR FINGER, LEFT CLINICAL INFORMATION: M79.89 - Other specified soft tissue disorders ; 23-year-old female complaining of middle finger swelling since Saturday. No injury or trauma. COMPARISON: None available. TECHNIQUE: Three views of the left third digit. FINDINGS: The bones and soft tissues are normal. No fracture. Alignment is anatomic. Joint spaces are maintained. XR/XR finger LT min 2V IMPRESSION: Normal finger radiographs. Electronically signed by: Terrell Azevedo MD 03/26/2024 10:09 AM ZANA CUBA
== END 2024-03-26 08:13 | disposition home or self-care (01) ==
LOC: HO.HMGCX 08:12
PROVIDERS: PCP Internal Medicine; Visit Provider Nurse Practitioner Family
DX: M79.89 Other specified soft tissue disorders (principal)
CPT/HCPCS: 73140; 99212

== ENCOUNTER 2024-03-26 08:12 | Outpatient (AMB) | payer OTHER, SELFPAY ==
--- NOTE | 2024-03-26 08:58 | AM.OFFWIN_ITS ---
Intake Vital Signs 3 03/26/24 08:59 Weight 168 lb BP 130/80 Blood Pressure Location Rt brachial Position Sitting Pulse 81 Pulse Source Pulse Oximeter Pulse Oximetry (%) 99 Oxygen Delivery Method Room Air Intake Visit Reasons: EP swollen & pain LT middle finger Intake Note: Patient here for middle finger on left hand pain that started becoming bothersome on saturday. Patient Tobacco Use Status: Never used Tobacco Allergies No Known Allergies Allergy (Verified 03/26/24 09:00) Do you need a note to return to daycare/school/sports/work: Yes HPI HPI Comments 2 History of Present Illness0 Details 23 y/o female patient who presents to [facility] walk in clinic with c/o Pain on left middle finger since Saturday. Denies injury or trauma but does report lifting heavy wood Pellet Saturday. She is not sure if this woods anything to do with it. Denies Gout, RA or Arthritis. Denies any medical problems. [facility] Medical History (Updated 03/26/24 @ 09:31 by Patricia Ryder NP) Swelling of middle finger No known health problems Social History Housing: House Alcohol intake: current Alcohol intake frequency: holidays/special occasions only Patient Tobacco Use Status: Never used Tobacco e-Cigarette/Vaping Use: Never Used service: No Current occupational status: employed Gender identity: Female Cognitive needs: No Hearing needs: No Vision needs: Yes Female Reproductive History Menstrual Age of Menarche: 11 Review of Systems Const All systems reviewed & are unremarkable except as noted in HPI and below Physical Exam Vital Signs: Last Vital Signs Pulse 81 03/26/24 08:59 BP 130/80 03/26/24 08:59 Pulse Ox 99 03/26/24 08:59 Oxygen Delivery Method Room Air 03/26/24 08:59 Const General: cooperative, comfortable and no acute distress Nutritional Appearance: obese Orientation/consciousness: patient oriented x3 Skin General skin exam: no rashes or lesions noted Trauma: no lacerations or abrasions Wounds: no wounds Neuro General: patient oriented x3, gait normal and moves all extremities Extrem Left upper extremity: hand Hand/finger images: 2 1. Swelling left middle finger, tenderness, limited ROM due to pain. No signs of infection, normal color and temperature. Sensory intact. Psych Speech and movement: Normal speech and movement present Assessment & Plan Assessment & Plan (1) Swelling of middle finger: Code(s): M79.89 - Other specified soft tissue disorders Plan: Ordered Xray No signs of infection or puncture wounds Ordered NSAIDs No clear etiology at this time. F/U with PCP. Orders: Orders 2 XR finger LT min 2V Today M79.89 - Other specified soft tissue disorders Medications: New 2 prednisone 50 mg PO DAILY 5 tabs 0RF 5 days M79.89 - Other specified soft tissue disorders ibuprofen 800 mg PO Q8H 20 tabs 0RF M79.89 - Other specified soft tissue disorders Coding Level of Care Code Est Pt Level 4 (78671) Diagnoses Swelling of middle finger M79.89 Time Spent (min) 20
[2024-03-26 08:59] VITALS: BP 130/80; PULSE 81; O2SAT 99
== END 2024-03-26 09:49 | disposition home or self-care (01) ==
PROVIDERS: PCP Internal Medicine; Visit Provider Nurse Practitioner Family
DX: M79.89 Other specified soft tissue disorders (principal)

== ENCOUNTER → 2024-03-26 09:34 | Outpatient (BNV) | payer OTHER, SELFPAY | PROVIDERS: PCP Internal Medicine; Visit Provider Radiology Diagnostic Radiology | DX: M79.89 Other specified soft tissue disorders (principal) | CPT/HCPCS: 73140 ==

== ENCOUNTER 2024-03-31 08:22 | Outpatient (REF) | payer OTHER, SELFPAY ==
--- NOTE | ~2024-03-31 | US_ITS ---
CLINICAL HISTORY: R79.89 - Other specified abnormal findings of blood chemistry US abdomen complete Comparison: None Findings: Gallbladder unremarkable, no stone formation or wall thickening. Common duct measures 2.2 mm. No sonographic Velasquez sign. Liver is homogeneous and normal in size and echogenicity. Main portal vein patent with normal direction of flow. Pancreas is unremarkable. Aorta and IVC patent and normal in caliber. The right kidney is normal, 10.1 cm in length. No focal abnormality or hydronephrosis. The left kidney is normal, 10.0 cm in length. No focal abnormality or hydronephrosis. The spleen is normal, 9.5 cm in length. No focal abnormality. Impression: No significant abnormalities. This document has been electronically signed by: Leif Griggs MD on 03/31/2024 19:27:29
--- OUTSIDE RECORDS SUMMARY | 2024-03-31 08:47 | XMS_ITS | Encounter Summary ---
Author Organization [facility] Address [address] [place] [address] Phone Care Team Providers Care Surveillance Monitor Name Role Phone Unavailable Primary Care Provider Unavailabl e Encounter Details Date Type Department Care Team (Late st Contact Info) Description 02/26/2014 Documentation [facility] [place] [address] [place], [place] [id number] Family Medicine, Physician [address] [place] [address] Social History Tobacco Use Types Packs/Day Years Used Date Smoking Tobacco: Never Assessed Comments Unknown Sex and Gender Information Value Date Recorded Sex Assigned at Female 11/18/2018 10:04 AM EDT Legal Sex Female 2:23 PM EDT Gender Identity Female 11/18/2018 10:04 AM EDT Sexual Orientation Straight 11/18/2018 10 :04 AM EDT documented as of this encounter Plan of Treatment Not on file documented as of this encounter Visit Diagnoses Not on filedocumented in this encounter
--- OUTSIDE RECORDS SUMMARY | 2024-03-31 08:47 | XMS_ITS | Encounter Summary ---
Author Organization [facility] Address [address] [place] [phone] Phone Care Team Providers Care Sexual Abuse Counsellor Name Role Phone Unavailable Primary Care Provider Unavailabl e Encounter Details Date Type Department Care Team (Late st Contact Info) Description 10/18/2016 Conversion Encounter [facility] - [address] [address] Social History Tobacco Use Types Packs/Day Years Used Date Smoking Tobacco: Never Comments:Never smoker Comments Unknown Sex and Gender Information Value [...]
--- OUTSIDE RECORDS SUMMARY | 2024-03-31 08:47 | XMS_ITS | Encounter Summary ---
Author Organization [facility] Address [address] [place] [address] Phone Care Team Providers Care Sas Etl Developer Name Role Phone Unavailable Primary Care Provider Unavailabl e Encounter Details Date Type Department Care Team (Late st Contact Info) Description 09/18/2010 [place]ation [facility] [place] [address] [place], [place] [id number] Family Medicine, Physician [address] [place], [place] [id number] Social History Tobacco Use Types Packs/Day Years [...]
--- OUTSIDE RECORDS SUMMARY | 2024-03-31 08:47 | XMS_ITS | Encounter Summary ---
Author Organization [facility] Address [address] [place] [address] Phone Care Team Providers Care Monotype Mechanic Name Role Phone Unavailable Primary Care Provider Unavailabl e Encounter Details Date Type Department Care Team (Late st Contact Info) Description 07/22/2009 [place] [facility] [place] [address] [place] [address] Family Medicine, Physician [address] [place], [place] [id number] Social History Tobacco Use Types Packs/Day Years [...]
--- OUTSIDE RECORDS SUMMARY | 2024-03-31 08:47 | XMS_ITS | Encounter Summary ---
Author Organization [facility] Address [address] [place] [address] Phone Care Team Providers Care Needle Board Repairer Name Role Phone Unavailable Primary Care Provider Unavailabl e Encounter Details Date Type Department Care Team (Late st Contact Info) Description 05/11/2014 Documentation [facility] [place] Family Medicine [address] [place], [place] [phone] Family Medicine, Physician [address] [place] [address] Social History Tobacco Use Types Packs/Day Years [...]
--- OUTSIDE RECORDS SUMMARY | 2024-03-31 08:47 | XMS_ITS | Clinical Summary ---
Author Organization [facility] Address [address] [place] [address] Phone Care Team Providers Care Design Release Engineer Name Role Phone Unavailable Primary Care Provider Unavailabl e Allergies No known active allergies Medications adapalene 0.1 % gel Apply topically nightly. Active norgestimate-et hinyl estradiol (Sprintec 28) 0.25-35 MG-MCG per tabletIndicatio ns: control counseling Take 1 tablet by mouth once daily. 84 tablet 1 0 Active Active Problems Problem Noted Date Diagnosed Date control counseling 04/04/2017 Assessment & Plan (11/24/2019 10:46 AM EDT): Doing well on ocp Assessment & Plan (05/21/2019 1:56 PM EDT): Doing well. Continue same rx and condom use. Follow up with new PCP Assessment & Plan (11/18/2018 10:17 AM EDT): Doing well on sprintec Assessment & Plan (08/14/2018 9:05 AM EDT): Doing well on sprintec. Keep up the good work! Assessment & Plan (04/04/2017 1:35 PM EST): Return to consider starting the pill Drug reaction 02/01/2017 Overview (11/24/2019): Reacted to acne cream Assessment & Plan (02/01/2017 11:30 AM EST): Adverse reaction to benzoyl peroxide, true allergy to tretinoin, it looks like. Will try adapalene Low vision of left eye with normal vision in contralateral eye 11/09/2016 Assessment & Plan (11/24/2019 10:46 AM EDT): Sees eye doctor Assessment & Plan (11/18/2018 10:17 AM EDT): Fine with glasses Assessment & Plan (11/09/2016 2:14 PM EDT): See eye doctor. You may well need glasses. Acne Wash with Dove twice daily, and use proactiv; I'd be glad to see you if you want for prescription cream. 1. Well adult exam 2. Need for vaccination MenACWY-D--Menactra Meningococcal conjugate vaccine IM, IIV4 Preservative Free Quadrivalent Flu Vaccine 0.5ml 3. Encounter for screening for other disorder Brief Behavioral Assessment - Normal (PSC,PHQ9,Sundar,etc) 4. Acne vulgaris 5. Low vision of left eye with normal vision in contralateral eye Resolved Problems Problem Noted Date Diagnosed Date Resolved Date Mild intermittent asthma without complication 08/15/19 19 11/24/2019 Overview (08/14/2018): Only occassional problems, mainly winter Assessment & Plan (11/18/2018 10:17 AM EDT): No problems over Spring, summer Assessment & Plan (08/14/2018 9:02 AM EDT): occassional albuterol use Encounter for initial prescr iption of contraceptive pills 04/12/2017 05/14/2018 Assessment & Plan (04/12/2017 11:46 AM EST): Begin control pills as directed. Pill dysphagia 04/04/2017 05/14/2018 Assessment & Plan (04/16/2017 9:56 AM EST): First, taught Mary simple diaphragmatic breathing, then made suggestions to do it, imagine doing something relaxing, then had her eat a pretzel, imagine swallowing that pill, then had her take a vitamin d tablet (400 IU), putting on the back of her tongue first, and swallowing it with water. Went well. Instructions: Now that you see how easy it is to swallow pills, you will have no problem. Do some relaxation breathing first if necessary, have a little snack if needed, remember to put the pill at the back of your tongue and then swallow it with water. Assessment & Plan (04/04/2017 1:33 PM EST): No reason to have this. Try a little pill on the back of your tongue with a straw, if you have problems, then see me. Acne 11/09/2016 08/14/2018 Overview (11/09/2016): Fairly mild Assessment & Plan (04/04/2017 1:29 PM EST): Improving, on present regimen. Assessment & Plan (02/01/2017 11:30 AM EST): Looking better. Assessment & Plan (11/09/2016 2:12 PM EDT): Wash with Dove twice daily, and use proactiv; I'd be glad to see you if you want for prescription cream. Immunizations Name Administration Dates Next Due DTP 1998 DTaP 5 05/28/2002, 0,1998,09/15 H1N1 03/28/2009 HPV, Quadrivalent 01/08/2012,09/04/2011,07/05/19 12 Hep A, ped/adol 02/26/2014,08/26/2013 Hep B, ped/adol 1998,1998,1998 Hib (PRP-T) 08/17/1999, 9,1998,07/14 IPV 05/28/2002, 0,1998,07/14 Influenza, injectable, quadr ivalent, preservative free 11/18/2018,11/14/2017,11/09/2016 Influenza, intranasal, trivalent 01/08/2012,12/03 MMR 05/28/2002,05/11/1999 Meningococcal B Trumenba 11/24/2019,11/18/2018 Meningococcal Conj (Menactra) MCV4P 11/09/2016,0 06/29/2010 Tdap 06/29/2010 Varicella 06/24/2008,05/11/1999 Family History Medical History Relation Name Comments No Known Problems Brother Vadim Throat cancer Father Vadim Hyperlipidemia Maternal Grandfather Liver cancer Maternal Grandfather Lung cancer Maternal Grandmother Hyperthyroidism Mother Gianna Lung cancer Paternal Grandfather smoker Relation Name Status Comments Brother Vadim Alive Brother: Alive and well Father Vadim Alive Father: Alive a nd well Maternal Grandfather Materna l grandfather: , Cancer -liver, Cancer, liver, Elevated cholesterol Maternal Grandmother Materna l grandmother: , Cancer -lung, Cancer Mother Gianna Alive Mother: Hyperth yroidism Other No family histo ry of Obesity, No family history of Deafness, No family history of Strabismus, Family history of Cancer, kidney, Family history of Diabetes mellitus, No family history of Seizure disorder, No family history of Dental caries, No family history of Migraines, No family history of ADD/ADHD, No family history of Thrombophilia, No family history of Asthma, No family history of Developmental dislocation of hip, No family history of Sudden /[place] under age 55, No family history of Hyperlipidemia, No family history of CVA (Stroke) Paternal Grandfather Paternal Grandmother Alive Social History Tobacco Use Types Packs/Day Years Used Date Smoking Tobacco: Never Smokeless Tobacco: Never Comments:Never smoker Alcohol Use Standard Drinks/Week Comments No 0 (1 standard drink = 0.6 oz pur e alcohol) Hunger/Food Answer Date Recorded In the last 12 months, did y ou or your family ever eat less than you felt you should because there wasn't enough money for food? No 11/19/2019 Stable Housing Answer Date Recorded Are you worried that in the next 2 months you may not have stable housing? No 11/19/2019 Transportation Concerns Answer Date Rec orded In the last 12 months, have you or your family ever had to go without healthcare because you didn't have a way to get there? No 11/19/2019 Hazards in Home Answer Date Recorded Think about the place you li ve. Do you have problems with any of the following? Pests (mice or roaches), mold, no/not working smoke detectors, water leaks, no window guards. No 2019 Financing Utilities Answer Date Recorde d In the last 12 months, has t he electric, gas, oil, or water company threatened to shut off your services in your home? No 11/19/2019 Safety at Home Answer Date Recorded Are you or your family worried about feeling saf e in your home? No 11/19/2019 Outside Support Answer Date Recorded Do you feel that you need mo re support from other people or programs to help you care for yourself or your family? No 11/19/2019 Understanding Health Concerns Answer Da te Recorded Do you need help understandi ng your or your child's healthcare needs (diagnosis, medications, plan, etc.)? No 11/19/2019 Financing Health Concerns Answer Date R ecorded In the last 12 months, was t here a time when your child needed to see a doctor or get medications or supplies but could not because of cost? No 11/19/2019 Missing School or Work Answer Date Feliciano rded Did you or your child miss s chool or work because of a health problem that could have been avoided? No 11/19/2019 Comments No Sex and Gender Information Value Date Recorded Sex Assigned at Female 11/18/2018 10:04 AM EDT Legal Sex Female 2:23 PM EDT Gender Identity Female 11/18/2018 10:04 AM EDT Sexual Orientation Straight 11/18/2018 10 :04 AM EDT Last Filed Vital Signs Vital Sign Reading Time Taken Comments Blood Pressure 113/71 11/24/2019 10:09 AM EDT Pulse 97 11/24/2019 10:09 AM EDT Temperature 36.8 ??C (98.3 ??F) 11/24/2019 10:09 AM E DT Respiratory Rate - - Oxygen Saturation - - Inhaled Oxygen Concentration - - Weight 56.7 kg (125 lb) 11/24/2019 10:09 AM EDT Height 152.4 cm (5') 11/24/2019 10:09 AM EDT Body Mass Index 24.41 11/24/2019 10:09 AM EDT Plan of Treatment Health Maintenance Due Date Last Done Comments DTaP,Tdap,and Td Vaccines (7 - Td or Tdap) 06/29/2020 06/29/2010, 05/28/2002, 11/30/1999, Additional history exists Influenza Vaccines (#1) 2023 11/19/19 19, 11/14/2017, 11/09/2016, Additional history exists COVID-19 Vaccine ( season) 2023 Hepatitis B Vaccines Completed 1998, 1998, 1998 HIB Vaccines Completed 08/17/1999, 11/04, 1998, Additional history exists IPV Vaccines Completed 05/28/2002, 11/1999, 1998, Additional history exists MMR Vaccines Completed 05/28/2002, 05/11/1999 Varicella Vaccines Completed 06/24/2008, 05/11/1999 HPV Vaccines Completed 01/08/2012, 05/2011, 07/05/2011 Hepatitis A Vaccines Completed 02/26/2014, 08/27/19 14 Meningococcal Vaccine Completed 11/09/2016, 011 Men B Vaccine Completed 11/24/2019, 11/18/2018 Pneumococcal Vaccine Aged Out No long er eligible based on patient's age to complete this topic Procedures * Due to [place] law, this organization might not be sharing sensitive test results. Procedure Name Priority Date/Time Associated Diagnosis Comments CHLAMYDIA AND GONORRHEA, AMPLIFIED Routine 11/18/2018 9:58 AM EDT Special screening for bacterial and spirochetal disease from Last 3 Months or Most Recently Relevant to Health Maintenance Results * Due to [place] law, this organization might not be sharing sensitive test results. * Chlamydia and Gonorrhoea, Amplified (11/18/2018 9:58 AM EDT) Chlamydia Trachomatis, DNA Probe NEGATIVE (NEG) [facility] Comment: No Chlamydia Trachomatis RNA detected in this patient's sample ? (REFERENCE RANGE/NORMAL VALUE: NOT DETECTED) ? Note: This test uses tip scourer- mediated amplification method to detect rRNA from C. Trachomatis URINE GC AMP PROBE NEGATIVE (NEG) [facility] Comment: No Neisseria Gonorrhoeae RNA detected in this patient's sample ? (REFERENCE RANGE/NORMAL VALUE: NOT DETECTED) ? NOTE: This test uses tip scourer-mediated amplification method to detect rRNA from N.Gonorrhoeae. A negative result does not preclude infection. In the case of a negative urine result, testing of an endocervical(female) or urethral (male) specimen is recommended if there is high clinical suspicion of infection. Due to very high sensitivity of Nucleic Acid Amplification Test, false positive results may occur. Therefore, specimen handling is extremely important. In patients in whom the disease is unlikely, additional sample for testing should be considered after an initial positive result. The performance characteristics of this test have not been evaluated in children. The Aptima Combo2 assay is not intended for the evaluation of suspected sexual abuse or for other medico-legal indications. The ordering provider should assess if the patient had consensual sex without risk of sexual abuse. Consult the [facility] if needed. Contact phone number . Therapeutic failure or success cannot be determined with the Aptima Combo2 assay since nucleic acid may persist following appropriate antimicrobial therapy. The Centers for Disease Control and Prevention (CDC) recommends confirmatory retesting using culture or a different nucleic acid amplification test when positive results occur, if indicated. Testing performed or reported by [facility], a Service of [facility], [address] [place] [address] Urine 11/18/2018 9:58 AM EDT 11/19/2018 12:21 AM EDT us Miguelangel Dennis MD LAB MICROBIOLOGY - GENERAL OR DERABLES Final Result [facility] from Last 3 Months or Most Recently Relevant to Health [place] [id number] [facility]
== END 2024-03-31 08:23 | disposition home or self-care (01) ==
LOC: HO.HMGCX 08:22
PROVIDERS: PCP Internal Medicine; Visit Provider Internal Medicine
DX: R79.89 Other specified abnormal findings of blood chemistry (principal)
CPT/HCPCS: 76700

== ENCOUNTER → 2024-03-31 08:25 | Outpatient (BNV) | payer OTHER, SELFPAY | PROVIDERS: PCP Internal Medicine; Visit Provider Radiology Diagnostic Radiology | DX: R79.89 Other specified abnormal findings of blood chemistry (principal) | CPT/HCPCS: 76700 ==

== ENCOUNTER 2024-04-09 08:07 | Outpatient (AMB) | payer OTHER, SELFPAY ==
--- OUTSIDE RECORDS SUMMARY | 2024-04-09 08:09 | XMS_ITS | Encounter Summary ---
Author Organization [facility] Address [address] [place] [address] Phone Care Team Providers Care Field Artillery Crewmember Name Role Phone Unavailable Primary Care Provider Unavailabl e Encounter Details Date Type Department Care Team (Late st Contact Info) Description 05/11/2014 [place] [facility] [place] [address] [place], [place] [id number] Family Medicine, Physician [address] [place] [address] Social History Tobacco Use Types Packs/Day Years [...]
--- OUTSIDE RECORDS SUMMARY | 2024-04-09 08:09 | XMS_ITS | Encounter Summary ---
Author Organization [facility] Address [address] [place] [id number] Phone Care Team Providers Care Absorber Operator Name Role Phone Unavailable Primary Care Provider Unavailabl e Encounter Details Date Type Department Care Team (Late st Contact Info) Description 10/18/2016 Conversion Encounter [facility] - [address] [address] Social History Tobacco Use Types Packs/Day Years [...]
--- OUTSIDE RECORDS SUMMARY | 2024-04-09 08:09 | XMS_ITS | Clinical Summary ---
Author Organization [facility] Address [address] [place] [address] Phone Care Team Providers Care Human Resources Benefits Assistant Name Role Phone Unavailable Primary Care Provider [...] if you want for prescription cream. Immunizations Immunization Administration Dates Next Due DTP 1998 DTaP [...] of hip, No family history of Sudden /[place] under age 55, No family history of [...] complete this topic Procedures * Due to [place] law, this organization might not be sharing sensitive test results. Procedure Name Priority Date/Time Associated Diagnosis Comments CHLAMYDIA AND GONORRHEA, AMPLIFIED Routine 11/18/2018 9:58 AM EDT Special screening for bacterial and spirochetal disease from Last 3 Months or Most Recently Relevant to Health Maintenance Results * Due to [place] law, this organization might not be sharing sensitive test results. * Chlamydia and Gonorrhoea, Amplified (11/18/2018 9:58 AM EDT) Chlamydia Trachomatis, DNA Probe NEGATIVE (NEG) [facility] Comment: No Chlamydia Trachomatis RNA detected in this patient's sample ? (REFERENCE RANGE/NORMAL VALUE: NOT DETECTED) ? Note: This test uses esthetician facialist- mediated amplification method to detect rRNA from C. Trachomatis URINE GC AMP PROBE NEGATIVE (NEG) [facility] Comment: No Neisseria Gonorrhoeae RNA detected in this patient's sample ? (REFERENCE RANGE/NORMAL VALUE: NOT DETECTED) ? NOTE: This test uses esthetician facialist-mediated amplification method to detect rRNA from N.Gonorrhoeae. [...] without risk of sexual abuse. Consult the [facility] if needed. Contact phone number . Therapeutic failure or success cannot be determined with the Aptima Combo2 assay since nucleic acid may persist following appropriate antimicrobial therapy. The Centers for Disease Control and Prevention (CDC) recommends confirmatory retesting using culture or a different nucleic acid amplification test when positive results occur, if indicated. Testing performed or reported by [facility], a Service of [facility], [address] [place] [address] Urine 11/18/2018 9:58 AM EDT 11/19/2018 12:21 AM EDT us Miguelangel Dennis MD LAB MICROBIOLOGY - GENERAL OR DERABLES Final Result [facility] from Last 3 Months or Most Recently Relevant to Health [place] [address] [facility]
--- OUTSIDE RECORDS SUMMARY | 2024-04-09 08:09 | XMS_ITS | Encounter Summary ---
Author Organization [facility] Address [address] [place] [address] Phone Care Team Providers Care Manager Treasury Name Role Phone Unavailable Primary Care Provider Unavailabl e Encounter Details Date Type Department Care Team (Late st Contact Info) Description 09/18/2010 Documentation [facility] [facility] [place] [address] [place], [place] [id number] Family Medicine, Physician [address] [place] [address] Social History Tobacco Use Types Packs/Day Years [...]
--- OUTSIDE RECORDS SUMMARY | 2024-04-09 08:09 | XMS_ITS | Encounter Summary ---
Author Organization [facility] Address [address] [place] [address] Phone Care Team Providers Care Sectional Belt Mold Assembler Name Role Phone Unavailable Primary Care Provider Unavailabl e Encounter Details Date Type Department Care Team (Late st Contact Info) Description 02/26/2014 Documentation [facility] [place] Medicine [address] [place], [place] [phone] Family Medicine, Physician [address] [place] [address] Social History Tobacco Use Types Packs/Day Years [...]
--- OUTSIDE RECORDS SUMMARY | 2024-04-09 08:09 | XMS_ITS | Encounter Summary ---
Author Organization [facility] Address [address] [place] [address] Phone Care Team Providers Care Certified Phlebotomy Technician Name Role Phone Unavailable Primary Care Provider Unavailabl e Encounter Details Date Type Department Care Team (Late st Contact Info) Description 07/22/2009 Documentation [facility] [place] Family Medicine [address] [place] [address] Family Medicine, Physician [address] [place] [address] Social History Tobacco Use Types Packs/Day Years [...]
--- NOTE | 2024-04-09 08:51 | MHC.PC.OV ---
Intake Visit Reasons: 3 weeks f/up Allergies No Known Allergies Allergy (Verified 04/09/24 08:52) Medication List - Last Reconciled 04/09/24 by Kelly Kamara MD amitriptyline 10 mg PO BEDTIME ibuprofen 800 mg PO Q8H Tobacco use date assessed: 04/09/24 Dental Screening Dental Screen Date: 04/09/24 Did you have a dental visit in the last 12 months?: Yes Did you have a dental problem in the last 6 months where you did not have access to dental care?: No Was dental information given to patient?: Patient has dentist HPI 3 weeks f/up HPI Details History - The patient is a 23-year-old female presenting with headaches. she was started on amitriptyline 10 mg last visit, She denies experiencing any adverse effects linked to the medication. - During recent laboratory investigations, elevated liver enzyme levels were detected. The patient denies any gastrointestinal symptoms such as abdominal pain, nausea, or vomiting, which are typically associated with liver dysfunction. An ultrasound performed on March 31 yielded normal findings, suggesting a possible connection between the enzyme elevation and recent weight gain, a pattern consistent with fatty liver changes. we will repeat LFT again in August - The patient also exhibits vitamin D deficiency as per lab results. The patient has been instructed to take Vitamin D3 supplements at a prescribed daily dose. Problem List - Headache - Elevated Liver Enzymes - Vitamin D Deficiency Patient Instructions - Continue taking the prescribed medication for headache as directed. - Start daily Vitamin D3 supplementation at a dose of 1000 units for the next six months. - Monitor weight and consider weight management strategies to help normalize liver enzyme levels. - Contact the physician or seek medical attention if any new symptoms develop or if there are concerns about the current treatment regimen. - repeat LFT in August Review of Systems - General: No fever no chills - Neurological: No headaches no dizziness - Ear nose throat: No sore throat no hearing difficulty no ear pain - Cardiovascular: No syncope, no chest pain, no palpitations - Gastrointestinal: No nausea vomiting or diarrhea - Endocrine: No polyuria polydipsia no heat intolerance - Genitourinary: No dysuria , no blood in urine [facility] Medical History Swelling of middle finger No known health problems Social History Housing: House Alcohol intake: current Alcohol intake frequency: holidays/special occasions only Patient Tobacco Use Status: Never used Tobacco e-Cigarette/Vaping Use: Never Used service: No Current occupational status: employed Gender identity: Female Cognitive needs: No Hearing needs: No Vision needs: Yes Female Reproductive History Menstrual Age of Menarche: 11 Questionnaire Thrive Questionnaire Date Thrive assessed: 03/18/24 AUDIT C Alcohol Use Questionnaire (AUDIT-C) 1. How often do you have a drink containing alcohol?: Monthly or less 2. How many drinks containing alcohol do you have on a typical day when you are drinking?: 1 or 2 3. How often do you have six or more drinks on one occasion?: Never Total Score: 1 Score Reviewed/Action Taken: Yes JANENE-7 AMB Questionnaire JANENE-7 Date JANENE - 7 assessed: 03/18/24 Source: Developed by Drs. Nabeel Lyon, Kath Walsh, Austin Aguilar and colleagues, with an educational roxy from [employer]. Physical exam (Primary Care) Tobacco/Smoking Status: Tobacco use Status Tobacco use date assessed 04/09/24 04/09/24 08:53 Patient Tobacco Use Status Never used Tobacco 04/09/24 08:53 e-Cigarette/Vaping Use Never Used 04/09/24 08:53 Thrive Assessment: Date of Thrive Assessment Date Thrive assessed 03/18/24 04/09/24 08:53 Telehealth Telehealth Telehealth Platform: [facility] Location of provider rendering services: practice address Location of patient: address on file Patient Identification confirmed using: Name, : Yes Telehealth method: voice only Patient verbally consented to treatment: Yes Patient verbally consented to billing insurance company: Yes Patient informed of any privacy concerns related to visit: Yes Minutes spent on Phone/Video with Pt.: 13 Coding Level of Care Code Tele Est Pt Level 3 (64548) Diagnoses LFT elevation R79.89 Headache syndrome G44.89 Assessment & Plan Assessment & Plan (1) LFT elevation: Code(s): R79.89 - Other specified abnormal findings of blood chemistry Category: Medical (2) Headache syndrome: Code(s): G44.89 - Other headache syndrome Category: Medical Plan History - The patient is a 23-year-old female presenting with headaches. she was started on amitriptyline 10 mg last visit, She denies experiencing any adverse effects linked to the medication. - During recent laboratory investigations, elevated liver enzyme levels were detected. The patient denies any gastrointestinal symptoms such as abdominal pain, nausea, or vomiting, which are typically associated with liver dysfunction. An ultrasound performed on March 31 yielded normal findings, suggesting a possible connection between the enzyme elevation and recent weight gain, a pattern consistent with fatty liver changes. we will repeat LFT again in August - The patient also exhibits vitamin D deficiency as per lab results. The patient has been instructed to take Vitamin D3 supplements at a prescribed daily dose. Problem List - Headache - Elevated Liver Enzymes - Vitamin D Deficiency Patient Instructions - Continue taking the prescribed medication for headache as directed. - Start daily Vitamin D3 supplementation at a dose of 1000 units for the next six months. - Monitor weight and consider weight management strategies to help normalize liver enzyme levels. - Contact the physician or seek medical attention if any new symptoms develop or if there are concerns about the current treatment regimen. - repeat LFT in August Orders: Orders Liver Panel 6 Months R79.89 - Other specified abnormal findings of blood chemistry Medications: New cholecalciferol (vitamin D3) 25 mcg PO DAILY 90 days 90 caps 1RF Refilled amitriptyline 10 mg PO BEDTIME 90 tabs 1RF
== END 2024-04-09 09:34 | disposition home or self-care (01) ==
LOC: HO.HMCC 08:07
PROVIDERS: PCP Internal Medicine; Visit Provider Internal Medicine
DX: R79.89 Other specified abnormal findings of blood chemistry (principal); G44.89 Other headache syndrome

== ENCOUNTER 2024-04-10 08:05 | Outpatient (REF) | payer OTHER, SELFPAY ==
--- OUTSIDE RECORDS SUMMARY | 2024-04-10 08:54 | XMS_ITS | Encounter Summary ---
Author Organization [facility] Address [address] [place] [phone] Phone Care Team Providers Care Soda Maker Name Role Phone Unavailable Primary Care Provider Unavailabl e Encounter Details Date Type Department Care Team (Late st Contact Info) Description 10/18/2016 Conversion Encounter [facility] - [address] [address] Social History Tobacco Use Types Packs/Day Years [...]
--- OUTSIDE RECORDS SUMMARY | 2024-04-10 08:54 | XMS_ITS | Encounter Summary ---
Author Organization [facility] Address [address] [place] [address] Phone Care Team Providers Care Asbestos Wire Finisher Name Role Phone Unavailable Primary Care Provider Unavailabl e Encounter Details Date Type Department Care Team (Late st Contact Info) Description 09/18/2010 Documentation [facility] [place] Family Medicine [address] [place], [place] [phone] Family Medicine, Physician [address] [place] [address] Social History Tobacco Use Types Packs/Day Years [...]
--- OUTSIDE RECORDS SUMMARY | 2024-04-10 08:54 | XMS_ITS | Encounter Summary ---
Author Organization [facility] Address [address] [place] [address] Phone Care Team Providers Care Automobile Service Writer Name Role Phone Unavailable Primary Care Provider Unavailabl e Encounter Details Date Type Department Care Team (Late st Contact Info) Description 05/11/2014 Documentation [facility] [place] Family Medicine [address] [place], [place] [phone] Family Medicine, Physician [address] [place] [address] Social History Tobacco Use Types Packs/Day Years [...]
--- OUTSIDE RECORDS SUMMARY | 2024-04-10 08:54 | XMS_ITS | Encounter Summary ---
Author Organization [facility] Address [address] [place] [address] Phone Care Team Providers Care Pumper Gager Apprentice Name Role Phone Unavailable Primary Care Provider Unavailabl e Encounter Details Date Type Department Care Team (Late st Contact Info) Description 07/22/2009 Documentation [facility] [place] [address] [place] [address] Family Medicine, Physician [address] [place] [address] Social History Tobacco Use Types Packs/Day Years [...]
--- OUTSIDE RECORDS SUMMARY | 2024-04-10 08:54 | XMS_ITS | Encounter Summary ---
Author Organization [facility] Address [address] [place] [address] Phone Care Team Providers Care Sexual Abuse Counsellor Name Role Phone Unavailable Primary Care Provider Unavailabl e Encounter Details Date Type Department Care Team (Late st Contact Info) Description 02/26/2014 Documentation [facility] Family Medicine [address] [place], [place] [id number] Family Medicine, Physician [address] [place] [address] Social History Tobacco Use Types Packs/Day Years [...]
--- OUTSIDE RECORDS SUMMARY | 2024-04-10 08:55 | XMS_ITS | Clinical Summary ---
Author Organization [facility] Address [address] [place] [address] Phone Care Team Providers Care Screen Printing Machine Loader Unloader Name Role Phone Unavailable Primary Care Provider [...] of hip, No family history of Sudden /IA under age 55, No family history of [...] complete this topic Procedures * Due to [place] law, this organization might not be sharing sensitive test results. Procedure Name Priority Date/Time Associated Diagnosis Comments CHLAMYDIA AND GONORRHEA, AMPLIFIED Routine 11/18/2018 9:58 AM EDT Special screening for bacterial and spirochetal disease from Last 3 Months or Most Recently Relevant to Health Maintenance Results * Due to [place] law, this organization might not be sharing sensitive test results. * Chlamydia and Gonorrhoea, Amplified (11/18/2018 9:58 AM EDT) Chlamydia Trachomatis, DNA Probe NEGATIVE (NEG) [facility] Comment: No Chlamydia Trachomatis RNA detected in this patient's sample ? (REFERENCE RANGE/NORMAL VALUE: NOT DETECTED) ? Note: This test uses caddy packer- mediated amplification method to detect rRNA from C. Trachomatis URINE GC AMP PROBE NEGATIVE (NEG) [facility] Comment: No Neisseria Gonorrhoeae RNA detected in this patient's sample ? (REFERENCE RANGE/NORMAL VALUE: NOT DETECTED) ? NOTE: This test uses caddy packer-mediated amplification method to detect rRNA from N.Gonorrhoeae. [...] without risk of sexual abuse. Consult the [facility] if needed. Contact phone number . Therapeutic failure or success cannot be determined with the Aptima Combo2 assay since nucleic acid may persist following appropriate antimicrobial therapy. The Centers for Disease Control and Prevention (CDC) recommends confirmatory retesting using culture or a different nucleic acid amplification test when positive results occur, if indicated. Testing performed or reported by [facility], a Service of [facility], [address] [place] [address] Urine 11/18/2018 9:58 AM EDT 11/19/2018 12:21 AM EDT us Miguelangel Dennis MD LAB MICROBIOLOGY - GENERAL OR DERABLES Final Result [facility] from Last 3 Months or Most Recently Relevant to Health [place] [address] [facility]
[2024-04-10 11:03] LABS: Rheumatoid Factor < 13.0 IU/mL (<15.0)
[2024-04-10 11:06] LABS: Erythrocyte Sedimentation Rate 12 MM/HR (0-20)
== END 2024-04-10 08:06 | disposition home or self-care (01) ==
LOC: HO.HMGCLDS 08:05
PROVIDERS: PCP Internal Medicine; Visit Provider Internal Medicine
DX: M79.89 Other specified soft tissue disorders (principal); M19.90 Unspecified osteoarthritis, unspecified site
CPT/HCPCS: 36415; 85652; 86141; 86431; 99212

== ENCOUNTER → 2024-04-10 08:05 | Outpatient (AMB) | payer OTHER, SELFPAY ==
--- OUTSIDE RECORDS SUMMARY | 2024-04-10 08:11 | XMS_ITS | Encounter Summary ---
Author Organization [facility] Address [address] [place] [address] Phone Care Team Providers Care Laboratory Scientist Name Role Phone Unavailable Primary Care Provider Unavailabl e Encounter Details Date Type Department Care Team (Late st Contact Info) Description 02/26/2014 Documentation [facility] [place] Family Medicine [address] [place], [place] [id number] Family Medicine, Physician [address] [place] [address] Social History Tobacco Use Types Packs/Day Years [...]
--- OUTSIDE RECORDS SUMMARY | 2024-04-10 08:11 | XMS_ITS | Encounter Summary ---
Author Organization [facility] Address [address] [place] [address] Phone Care Team Providers Care Prison Librarian Name Role Phone Unavailable Primary Care Provider Unavailabl e Encounter Details Date Type Department Care Team (Late st Contact Info) Description 09/18/2010 [place]ation [facility] [place] [address] [place], [place] [id number] Family Medicine, Physician [address] [place] [address] Social History Tobacco Use Types Packs/Day Years [...]
--- OUTSIDE RECORDS SUMMARY | 2024-04-10 08:11 | XMS_ITS | Encounter Summary ---
Author Organization [facility] Address [address] [place] [address] Phone Care Team Providers Care Casework Supervisor Name Role Phone Unavailable Primary Care Provider Unavailabl e Encounter Details Date Type Department Care Team (Late st Contact Info) Description 07/22/2009 Documentation [facility] [place] [place] Family Medicine [address] [place] [address] Family Medicine, Physician [address] [place] [address] Social History Tobacco Use Types Packs/Day Years [...]
--- OUTSIDE RECORDS SUMMARY | 2024-04-10 08:11 | XMS_ITS | Encounter Summary ---
Author Organization [facility] Address [address] [place] [id number] Phone Care Team Providers Care Slime Plant Operator Helper Name Role Phone Unavailable Primary Care Provider Unavailabl e Encounter Details Date Type Department Care Team (Late st Contact Info) Description 10/18/2016 Conversion Encounter [facility] - [address] [address] Social History Tobacco Use Types Packs/Day Years [...]
--- OUTSIDE RECORDS SUMMARY | 2024-04-10 08:11 | XMS_ITS | Clinical Summary ---
Author Organization [facility] Address [address] [place] [address] Phone Care Team Providers Care Stakeholder Manager Name Role Phone Unavailable Primary Care Provider [...] Plan (04/16/2017 9:56 AM EST): First, taught aMry simple diaphragmatic breathing, then made suggestions to [...] of hip, No family history of Sudden /[place] under age 55, No family history of [...] complete this topic Procedures * Due to [place] Ol[place] law, this organization might not be sharing sensitive test results. Procedure Name Priority Date/Time Associated Diagnosis Comments CHLAMYDIA AND GONORRHEA, AMPLIFIED Routine 11/18/2018 9:58 AM EDT Special screening for bacterial and spirochetal disease from Last 3 Months or Most Recently Relevant to Health Maintenance Results * Due to [place] Ol[place] law, this organization might not be sharing sensitive test results. * Chlamydia and Gonorrhoea, Amplified (11/18/2018 9:58 AM EDT) Chlamydia Trachomatis, DNA Probe NEGATIVE (NEG) [facility] Comment: No Chlamydia Trachomatis RNA detected in this patient's sample ? (REFERENCE RANGE/NORMAL VALUE: NOT DETECTED) ? Note: This test uses heel padder- mediated amplification method to detect rRNA from C. Trachomatis URINE GC AMP PROBE NEGATIVE (NEG) [facility] Comment: No Neisseria Gonorrhoeae RNA detected in this patient's sample ? (REFERENCE RANGE/NORMAL VALUE: NOT DETECTED) ? NOTE: This test uses heel padder-mediated amplification method to detect rRNA from N.Gonorrhoeae. [...] without risk of sexual abuse. Consult the [facility] if needed. Contact phone number . Therapeutic failure or success cannot be determined with the Aptima Combo2 assay since nucleic acid may persist following appropriate antimicrobial therapy. The Centers for Disease Control and Prevention (CDC) recommends confirmatory retesting using culture or a different nucleic acid amplification test when positive results occur, if indicated. Testing performed or reported by [facility], a Service of [facility], [address] [place] [address] Urine 11/18/2018 9:58 AM EDT 11/19/2018 12:21 AM EDT us Miguelangel Dennis MD LAB MICROBIOLOGY - GENERAL OR DERABLES Final Result [facility] from Last 3 Months or Most Recently Relevant to Health [place] [address] [facility]
--- OUTSIDE RECORDS SUMMARY | 2024-04-10 08:11 | XMS_ITS | Encounter Summary ---
Author Organization [facility] Address [address] [place] [address] Phone Care Team Providers Care Rehabilitation Aide Name Role Phone Unavailable Primary Care Provider Unavailabl e Encounter Details Date Type Department Care Team (Late st Contact Info) Description 05/11/2014 [place] [facility] [place] [address] [place], [place] [id number] Family Medicine, Physician [address] [place] [address] Social History Tobacco Use Types Packs/Day Years [...]
--- NOTE | 2024-04-10 08:18 | A.OFFPC_ITS ---
Vital Signs 04/10/24 08:18 Height 5 ft Weight 157 lb BMI 30.7 BP 118/70 Blood Pressure Location Lt brachial Position Sitting Respiration 16 Pulse 78 Pulse Source Pulse Oximeter Temp 98 F Temp Source Oral Pulse Oximetry (%) 98 Oxygen Delivery Method Room Air Intake Visit Reasons: left middle finger swelling/throbbing. Allergies No Known Allergies Allergy (Verified 04/10/24 08:19) Medication List - Last Reconciled 04/10/24 by Kelly Kamara MD amitriptyline 10 mg PO BEDTIME cholecalciferol (vitamin D3) 25 mcg PO DAILY 90 days ibuprofen 800 mg PO Q8H Tobacco use date assessed: 04/10/24 Dental Screening Dental Screen Date: 04/10/24 Did you have a dental visit in the last 12 months?: Yes Did you have a dental problem in the last 6 months where you did not have access to dental care?: No Was dental information given to patient?: Patient has dentist HPI left middle finger swelling/throbbing. HPI Details - The patient is a 23-year-old female pr esenting with swelling of the left middle finger. - Onset of swelling was several weeks ag o, occurring without any known inciting factors, injury or trauma. - The patient underwent x-rays at a walk -in clinic which were reported as normal. - Treatment with prednisone was effectiv e temporarily; however, swelling recurred post-treatment. - Family history is negative for rheumat oid arthritis. - No additional joint swelling or pain w as reported. - Current management with ibuprofen prov ides relief from throbbing pain but not from swelling. Problem List - Swollen left middle finger - History of abdominal ultrasound with n ormal results - LFT elevation Patient Instructions - Plan to [facility] a ad clerk [facility] and management of finger swelling. - Undergo prescribed blood work to rule out conditions like lupus. Other inflammatory markers Review of Systems - General: No fever no chills - Neurological: No headaches no dizziness - Ear nose throat: No sore throat no hearing difficulty no ear pain - Cardiovascular: No syncope, no chest pain, no palpitations - Gastrointestinal: No nausea vomiting or diarrhea - Endocrine: No polyuria polydipsia no heat intolerance - Genitourinary: No dysuria , no blood in urine Physical Exam General: No acute distress HEENT: No acute findings Neck: Supple Respiratory system: Able to talk in full sentences, no audible wheeze cardiovascular: S1-S2 regular in rate and rhythm Gastrointestinal: No pain Extremities: Left middle finger swollen, with a limited range of motion due to swelling, sensory exam intact vascular intact GROCERY SHOPPER: Alert awake oriented x3 motor sensory intact Skin: Normal turgor [facility] Medical History Swelling of middle finger No known health problems Social History Housing: House Alcohol intake: current Alcohol intake frequency: holidays/special occasions only Patient Tobacco Use Status: Never used Tobacco e-Cigarette/Vaping Use: Never Used service: No Current occupational status: employed Gender identity: Female Cognitive needs: No Hearing needs: No Vision needs: Yes Female Reproductive History Menstrual Age of Menarche: 11 Questionnaire Thrive Questionnaire Date Thrive assessed: 03/11/24 I am a: Patient What is your living situation today?: I have a steady place to live Within the past 12 months, did the food you bought not last and you didn't have the money to get more?: Never true Within the past 12 months, did you worry whether your food would run out before you got money to buy more?: Never true Do you have trouble paying for medicines?: No Do you have trouble getting transportation to medical appointments?: No Do you have trouble paying your heating and electricity bill?: No Do you have trouble taking care of your child, family member or friend?: No Do you have trouble with day-to-day activities such as bathing, preparing meals, shopping, managing finances, etc.?: No Are you currently unemployed and looking for a job?: No Are you interested in more education?: Yes Please select the resources that you would like help with: None Currently or been in a relationship where the following occur: No concerns reported THRIVE Score: 0 AUDIT C Alcohol Use Questionnaire (AUDIT-C) 1. How often do you have a drink containing alcohol?: Monthly or less 2. How many drinks containing alcohol do you have on a typical day when you are drinking?: 1 or 2 3. How often do you have six or more drinks on one occasion?: Never Total Score: 1 Score Reviewed/Action Taken: Yes JANENE-7 AMB Questionnaire JANENE-7 Date JANENE - 7 assessed: 03/18/24 Source: Developed by Drs. Nabeel Lyon, Kath Walsh, Austin Aguilar and colleagues, with an educational roxy from [employer] Physical exam (Primary Care) Vital Signs: Last Vital Signs Temp 98 F 04/10/24 08:18 Pulse 78 04/10/24 08:18 Resp 16 04/10/24 08:18 BP 118/70 04/10/24 08:18 Pulse Ox 98 04/10/24 08:18 Oxygen Delivery Method Room Air 04/10/24 08:18 BMI result Body Mass Index 30.7 Tobacco/Smoking Status: Tobacco use Status Tobacco use date assessed 04/10/24 04/10/24 08:20 Patient Tobacco Use Status Never used Tobacco 04/10/24 08:20 e-Cigarette/Vaping Use Never Used 04/10/24 08:20 Thrive Assessment: Date of Thrive Assessment Date Thrive assessed 03/11/24 04/10/24 08:20 Currently or been in a relationship where the following occur: No concerns reported Coding Level of Care Code Est Pt Level 3 (02792) Diagnoses Finger swelling M79.89 Arthritis M19.90 Assessment & Plan Assessment & Plan (1) Finger swelling: Code(s): M79.89 - Other specified soft tissue disorders Category: Medical (2) Arthritis: Code(s): M19.90 - Unspecified osteoarthritis, unspecified site Category: Medical Plan - The patient is a 23-year-old female presenting with swelling of the left middle finger. - Onset of swelling was several weeks ago, occurring without any known inciting factors, injury or trauma. - The patient underwent x-rays at a walk-in clinic which were reported as normal. - Treatment with prednisone was effective temporarily; however, swelling recurred post-treatment. - Family history is negative for rheumatoid arthritis. - No additional joint swelling or pain was reported. - Current management with ibuprofen provides relief from throbbing pain but not from swelling. Problem List - Swollen left middle finger - History of abdominal ultrasound with normal results - LFT elevation Patient Instructions - Plan to see a ad clerk for further evaluation and management of finger swelling. - Undergo prescribed blood work to rule out conditions like lupus. Other inflammatory markers Orders: Orders Rheumatoid Factor Today M19.90 - Unspecified osteoarthritis, unspecified site, M79.89 - Other specified soft tissue disorders CRP High Sensitivity Today M19.90 - Unspecified osteoarthritis, unspecified site, M79.89 - Other specified soft tissue disorders Erythrocyte Sedimentation Rate Today M1.90 - Unspecified osteoarthritis, unspecified site, M79.89 - Other specified soft tissue disorders Referrals Rheumatology Referral M1. - Unspecified osteoarthritis, unspecified site, M79.89 - Other specified soft tissue disorders
== END | disposition home or self-care (01) ==
PROVIDERS: PCP Internal Medicine; Visit Provider Internal Medicine

== ENCOUNTER 2024-11-14 09:19 | Outpatient (AMB) | payer OTHER, SELFPAY ==
--- OUTSIDE RECORDS SUMMARY | 2024-11-14 09:21 | XMS_ITS | Encounter Summary ---
Author Organization [facility] Address [address] [place] [address] Phone Care Team Providers Care Supervisor Finishing Room Name Role Phone Unavailable Primary Care Provider Unavailabl e Encounter Details Date Type Department Care Team (Late st Contact Info) Description 07/22/2009 Documentation [facility] [place] [address] [place] [address] Family Medicine, Physician [address] [place], [place] [id number] Social History Tobacco Use Types Packs/Day Years [...]
--- OUTSIDE RECORDS SUMMARY | 2024-11-14 09:21 | XMS_ITS | Encounter Summary ---
Author Organization [facility] Address [address] [place] [address] Phone Care Team Providers Care General Matcher Name Role Phone Unavailable Primary Care Provider Unavailabl e Encounter Details Date Type Department Care Team (Late st Contact Info) Description 10/18/2016 Conversion Encounter [facility] - [address] [address] Social History Tobacco Use Types Packs/Day Years [...]
--- OUTSIDE RECORDS SUMMARY | 2024-11-14 09:21 | XMS_ITS | Clinical Summary ---
Author Organization [facility] Address [address] [place] [address] Phone Care Team Providers Care Coutierier Name Role Phone Kelly Kamara MD Primary Care Provider [phone] Social History Tobacco Use Types Packs/Day Years Used Date Smoking Tobacco: Never Assessed Education Answer Date Recorded Are you interested in more education? Not on amy e 11/09/2024 Are you concerned about learning? Not on file 11/09/2024 No 11/09/2024 No 11/09/2024 Digital Access Answer Date Recorded No 11/09/2024 No 11/09/2024 Reliable internet access at home? Not on file 11/09/2024 Device with a working camera? Not on file Comments Unknown Sex and Gender Information Value Date Recorded Sex Assigned at Not on file Legal Sex Female 12:00 PM EDT Gender Identity Not on file Sexual Orientation Not on file Plan of Treatment Upcoming Encounters Date Type Department Care Team (Late st Contact Info) Description 12/21/2024 3:10 PM EDT Office Visit [facility] [address] [place] [address] [place] [address] Leah Guerrero MD 22 [facility], [address] [place] [address] [email or web address] Health Maintenance Due Date Last Done Comments Adult Td,Tdap Booster 1998 DEPRESSION SCREENING 2010 SMOKING Hx and SMOKELESS TOB ACCO SCREENING 05/09/2011 HPV VACCINES (1 - 3-dose series) 2013 HEPATITIS C SCREENING 2016 HIV ONE-TIME SCREENING (18-6 5 YEARS) 2016 PAP SMEAR 05/09/2019 INFLUENZA VACCINE (#1) 2024 COVID-19 VACCINE (2023-2 5 season) 2024 HEPATITIS A VACCINES Aged Out No long er eligible based on patient's age to complete this topic HIB VACCINES Aged Out No longer eligi ble based on patient's age to complete this topic MENINGOCOCCAL VACCINES (ACWY) Aged Out No longer eligible based on patient's age to complete this topic MENINGOCOCCAL VACCINES (B) Aged Out N o longer eligible based on patient's age to complete this topic PNEUMOCOCCAL VACCINES (0-49 years) Aged Out No longer eligible based on patient's age to complete this topic Medical Devices Not on file Insurance [facility] NON NSPG PCP [place] [facility] Address: [place] [address] [facility] NON NSPG PCP [place] CLARITY CONNECTORCARE [employer] NON NSPG PCP [place]IL[place] CLARITY CONNECTORCARE [employer] NON NSPG PCP S[place] [employer]ARITY CONNECTORCARE [employer] NON NSPG PCP [facility] [facility] Care Teams Coutierier Relationship Specialty Start Date End Date Kelly Kamara MD [facility] [place] [address] PCP - General Internal Medicine 11/09/24 Additional Source Comments The information contained in this document represents components of the legal health record. It is not the complete legal health record.[facility]
--- OUTSIDE RECORDS SUMMARY | 2024-11-14 09:21 | XMS_ITS | Clinical Summary ---
Author Organization [facility] Address [address] [place] [address] Phone Care Team Providers Care [place] Ma[place] Name Role Phone Unavailable Primary Care Provider [...] of hip, No family history of Sudden /MD under age 55, No family history of [...] 97 11/24/2019 10:09 AM EDT Temperature 36.8 C (98.3 F) 11/24/2019 10:09 AM EDT Respiratory Rate - - Oxygen Saturation - [...] 11/30/1999, Additional history exists Influenza Vaccines (#1) 2024 11/19/19 19, 11/14/2017, 11/09/2016, Additional history exists COVID-19 Vaccine ( season) 2024 Hepatitis B Vaccines Completed 1998, 1998, 1998 [...] complete this topic Procedures * Due to [place] law, this organization might not be sharing sensitive test results. Procedure Name Priority Date/Time Associated Diagnosis Comments CHLAMYDIA AND GONORRHEA, AMPLIFIED Routine 11/18/2018 9:58 AM EDT Special screening for bacterial and spirochetal disease from Last 3 Months or Most Recently Relevant to Health Maintenance Results * Due to [place] law, this organization might not be sharing sensitive test results. * Chlamydia and Gonorrhoea, Amplified (11/18/2018 9:58 AM EDT) Chlamydia Trachomatis, DNA Probe NEGATIVE (NEG) [facility] Comment: No Chlamydia Trachomatis RNA detected in this patient's sample (REFERENCE RANGE/NORMAL VALUE: NOT DETECTED) Note: This test uses chilling hood operator- mediated amplification method to detect rRNA from C. Trachomatis URINE GC AMP PROBE NEGATIVE (NEG) [facility] Comment: No Neisseria Gonorrhoeae RNA detected in this patient's sample (REFERENCE RANGE/NORMAL VALUE: NOT DETECTED) NOTE: This test uses chilling hood operator-mediated amplification method to detect rRNA from N.Gonorrhoeae. [...] risk of sexual abuse. Consult the [facility] if needed. Contact phone number . Therapeutic failure or success cannot be determined with the Aptima Combo2 assay since nucleic acid may persist following appropriate antimicrobial therapy. The Centers for Disease Control and Prevention (CDC) recommends confirmatory retesting using culture or a different nucleic acid amplification test when positive results occur, if indicated. Testing performed or reported by [facility], a Service of [facility], [address] [place] [address] Urine 11/18/2018 9:58 AM EDT 11/19/2018 12:21 AM EDT us Miguelangel Dennis MD LAB MICROBIOLOGY - GENERAL OR DERABLES Final Result [facility] from Last 3 Months or Most Recently Relevant to Health Maintenance Insurance [facility]
--- OUTSIDE RECORDS SUMMARY | 2024-11-14 09:21 | XMS_ITS | Encounter Summary ---
Author Organization [facility] Address [address] [place] [address] Phone Care Team Providers Care Senior Product Analyst Name Role Phone Unavailable Primary Care Provider Unavailabl e Encounter Details Date Type Department Care Team (Late st Contact Info) Description 02/26/2014 Documentation [facility] [place] Medicine [address] [place], [place] [id number] Family Medicine, Physician [address] [place] [address] Social History Tobacco Use Types Packs/Day Years [...]
--- OUTSIDE RECORDS SUMMARY | 2024-11-14 09:21 | XMS_ITS | Encounter Summary ---
Author Organization [facility] Address [address] [place] [address] Phone Care Team Providers Care Care Support Representative Name Role Phone Unavailable Primary Care Provider Unavailabl e Encounter Details Date Type Department Care Team (Late st Contact Info) Description 05/11/2014 [place]ation [facility] [place] [address] [place], [place] [id number] Family Medicine, Physician [address] [place] [address] Social History Tobacco Use Types Packs/Day Years [...]
--- OUTSIDE RECORDS SUMMARY | 2024-11-14 09:21 | XMS_ITS | Encounter Summary ---
Author Organization [facility] Address [address] [place] [address] Phone Care Team Providers Care Tax Technician Name Role Phone Unavailable Primary Care Provider Unavailabl e Encounter Details Date Type Department Care Team (Late st Contact Info) Description 09/18/2010 Documentation [facility] [place] Family Medicine [address] [place], [place] [id number] Family Medicine, Physician [address] [place], [place] [id number] Social History Tobacco Use Types Packs/Day Years [...]
[2024-11-14 09:29] VITALS: BP 90/60; PULSE 83; RESP 15; TEMP 36.7; O2SAT 98; BMI 30.7
--- NOTE | 2024-11-14 09:29 | MHC.OFFWIV ---
Intake Vital Signs 11/14/24 09:29 Height 5 ft Weight 157 lb BMI 30.7 BP 90/60 Blood Pressure Location Lt brachial Position Sitting Respiration 15 Pulse 83 Pulse Source Pulse Oximeter Temp 98.0 F Temp Source Oral Pulse Oximetry (%) 98 Oxygen Delivery Method Room Air Intake Visit Reasons: EP-Middle back pain Rt side Intake Note: Pt is here today c/o mid back Rt side spasms x1mo just woke up with pain Patient Tobacco Use Status: Never used Tobacco Allergies No Known Allergies Allergy (Verified 11/14/24 09:30) HPI HPI Comments History of Present Illness Details This is a 24-year-old female with no stated past medical history presenting for right-sided back pain that she has had over the past 1 month. Patient states that her pain was intermittent at first but is now a constant aching pain. Patient denies having any urinary symptoms including urinary frequency, dysuria, hematuria, abdominal pain, fevers or chills. Patient has taken ibuprofen ?occasionally? and took a single muscle relaxer last night without complete relief of her discomfort. She denies any injury or trauma preceding the onset of her symptoms 1 month ago. [facility] Medical History Swelling of middle finger No known health problems Social History Housing: House Alcohol intake: current Alcohol intake frequency: holidays/special occasions only Patient Tobacco Use Status: Never used Tobacco e-Cigarette/Vaping Use: Never Used service: No Current occupational status: employed Gender identity: Female Cognitive needs: No Hearing needs: No Vision needs: Yes Female Reproductive History Menstrual Age of Menarche: 11 Review of Systems Const All systems reviewed & are unremarkable except as noted in HPI and below Denies body aches, Denies chills and Denies fever(s) GI Denies abdominal pain, Denies dyspepsia, Denies diarrhea, Denies nausea, Denies vomiting and Reports other (No postprandial pain) Reports no additional complaints, Denies hematuria, Denies urinary frequency, Denies difficulty voiding, Denies dysuria, Denies urinary hesitancy and Denies urinary urgency Musc Reports back pain (right mid-back) Skin/Breast Reports system reviewed and no additional complaints, except as documented Neuro Reports no additional complaints Psych Reports no additional complaints Physical Exam Vital Signs: Last Vital Signs Temp 98.0 F 11/14/24 09:29 Pulse 83 11/14/24 09:29 Resp 15 11/14/24 09:29 BP 90/60 11/14/24 09:29 Pulse Ox 98 11/14/24 09:29 Oxygen Delivery Method Room Air 11/14/24 09:29 BMI result Body Mass Index 30.7 Const General: cooperative, healthy appearing, comfortable, no acute distress, well developed, alert, awake and Physically active; No acute distress or ill appearing Nutritional Appearance: average body habitus Orientation/consciousness: patient oriented x3 Limitations: no limitations GI Inspection: Yes normal to inspection Palpation (GI): Soft to palpation, nontender and no guarding General: Yes Bimanual renal exam normal bilaterally, Yes bladder normal to palpation and Yes no CVA tenderness Bimanual exam- vagina & uterus: bladder normal to palpation Back/Spine/Pelvis Back: no CVA tenderness Thoracic/Lumbar Spine: thoracic and lumbar spine normal to inspection, thoraco-lumbar ROM normal, No pain with thoraco-lumbar ROM, paraspinal muscle tenderness on the right in the upper thoracic and in the mid thoracic, No thoracic spinal tenderness and No lumbar spinal tenderness Skin General skin exam: no rashes or lesions noted Neuro General: patient oriented x3 Cognition (Neuro): normal cognition Gait exam (Neuro): Normal gait present Motor exam (neuro): 5/5 motor strength present throughout Psych Appearance: grossly normal Mental Status: mental status grossly normal Insight: Good insight present (Psych) Judgement: Good judgement present (Psych) Assessment & Plan Assessment & Plan (1) Strain of muscle and tendon of back wall of thorax, initial encounter: Code(s): S29.012A - Strain of muscle and tendon of back wall of thorax, initial encounter Plan: Patient is in no acute distress and denies having any urinary symptoms. Urinalysis is deferred at this time. Patient's history coupled with her examination is consistent with a muscle strain and she will be provided with an anti-inflammatory and muscle relaxant. Plan Naprosyn q.12 hours x 10 days, methocarbamol 500 mg q.i.d. PRN. Medications: New naproxen (Naprosyn) 500 mg PO BID 20 tabs 0RF methocarbamol 500 mg PO QID 20 tabs 0RF Coding Level of Care Code Est Pt Level 3 (98940) Diagnoses Strain of muscle and tendon of back wall of thorax, initial encounter S29.012A Time Spent (min) 20
== END 2024-11-14 09:58 | disposition home or self-care (01) ==
LOC: HO.HMCWIC 09:19
PROVIDERS: PCP Internal Medicine; Visit Provider Physician Assistant
DX: S29.012A Strain of muscle and tendon of back wall of thorax, initial encounter (principal)

== ENCOUNTER → 2024-11-14 09:19 | Outpatient (BNVA) | payer OTHER, SELFPAY | PROVIDERS: PCP Internal Medicine; Visit Provider Physician Assistant | DX: S29.012A Strain of muscle and tendon of back wall of thorax, initial encounter (principal); X58.XXXA Exposure to other specified factors, initial encounter; Y93.9 Activity, unspecified; Y92.9 Unspecified place or not applicable; Y99.9 Unspecified external cause status | CPT/HCPCS: 99212 ==

== ENCOUNTER 2024-12-26 09:10 | Outpatient (AMB) | payer OTHER, SELFPAY ==
--- OUTSIDE RECORDS SUMMARY | 2024-12-21 15:10 | XMS_ITS | Encounter Summary ---
Author Organization [facility] Address [address] [place] [address] [place] [address] Phone Care Team Providers Care Marriage And Family Social Worker Name Role Phone Kelly Kamara MD Primary Care Provider [phone] Reason for Visit * Reason Comments Annual Exam Encounter Details Date Type Department Care Team (Latest Contact Info) Description 12/21/2024 3:10 PM EDT Office Visit [facility] [address] [place] [address] Leah Guerrero MD 22 [facility], [address] [place] [id number] [email or web address] Routine gynecological examination (Primary Dx); Screening for cervical cancer Social History Tobacco Use Types Packs/Day Years Used Date Smoking Tobacco: Never Smokeless Tobacco: Never Tobacco Cessation:Counseling Given: Not Answered Alcohol Use Standard Drinks/Week Comments Yes 0 (1 standard drink = 0.6 oz pur e alcohol) social Education Answer Date Recorded Are you interested [...] on file Sexual Orientation Not on file documented as of this encounter Last Filed Vital Signs Vital Sign Reading Time Taken Comments Blood Pressure 110/62 12/21/2024 2:56 PM EDT Pulse - - Temperature - - Respiratory Rate - - Oxygen Saturation - - Inhaled Oxygen Concentration - - Weight 72.1 kg (159 lb) 12/21/2024 2:56 PM EDT Height 152.4 cm (5') 12/21/2024 2:56 PM EDT Body Mass Index 31.05 12/21/2024 2:56 PM EDT documented in this encounter Progress Notes * Leah Guerrero MD - 12/21/2024 3:10 PM EDT Office note: Annual Exam Encounter Date: 12/21/2024 HPI: Mary Doyle is a 24 y.o. who presents for routine annual exam. Patient's last menstrual period was 12/07/2024. Nexplanon removed 01/2024 Genito-Urinary ROS: no dysuria, trouble voiding, or hematuria Menses - irregular, occasionally skips months. ? PCOS Breast ROS: negative for breast lumps Last Pap - 2yrs ago Last STD screen - ? Review of Systems - General ROS: negative Psychological ROS: negative Respiratory ROS: no cough, shortness of breath, or wheezing Cardiovascular ROS: no chest pain or dyspnea on exertion Gastrointestinal ROS: no abdominal pain, change in bowel habits, or black or bloody stools Obstetric and Gynecologic History OB History Para Term AB Living 0 0 0 0 0 0 SAB IAB Ectopic Multiple Live Births 0 0 0 0 0 Menstrual History Patient's last menstrual period was 12/07/2024. Period Pattern: Regular Period Cycle (Days): 28-60 Period Duration (Days): 4 Menstrual Flow: Moderate Menstrual Control: Maxi pad Dysmenorrhea: None Past Histories: History reviewed. No pertinent past medical history. Past Surgical History: Procedure Laterality Date WISDOM TOOTH EXTRACTION Family History Problem Relation Age of Onset Lung cancer Paternal Grandfather No Known Problems Maternal Grandmother No Known Problems Maternal Grandfather Throat cancer Father Social History Socioeconomic History Marital status: Single Spouse name: Not on file Number of children: Not on file Years of education: Not on file Highest education level: Not on file Occupational History Not on file Tobacco Use Smoking status: Never Smokeless tobacco: Never Substance and Sexual Activity Alcohol use: Yes Comment: social Drug use: Not Currently Sexual activity: Yes Partners: Male control/protection: None Other Topics Concern Not on file Social History Narrative Not on file No Known Allergies Current Outpatient Medications on File Prior to Visit Medication Sig Dispense Refill Last Dispense sqmrhdorpupu-jxciquyq-avijxp (CENTRUM SILVER) Tab Take 1 tablet by mouth daily. Unknown (patient-reported) omega 8-SAH-KJW-fish oil (FISH OIL) 60-90-500 mg capsule Take by mouth. Unknown (patient-reported) No current facility-administered medications on file prior to visit. Health Maintenance and Preventative Care: There is no immunization history on file for this patient. Physical exam: Blood pressure 110/62, height 152.4 cm (5'), weight 72.1 kg (159 lb), last menstrual period 12/07/2024. Gen: Alert, cooperative. Well-appearing on today's exam Psych: Mood and affect appropriate. HEENT: head normocephalic without obvious deformity. Neck: Trachea midline. Breast: Symmetric, normal appearing skin, nipples without lesions, no palpable masses, no tenderness Abdomen: Soft,non-tender. No masses palpable, no organomegaly. Skin: Skin color, texture, turgor normal. No rashes or lesions External Genitalia: Normal architecture, without lesions. No inguinal lymphadenopathy. Vagina: Mucosa is pink with normal rugae. No abnormal discharge or lesions. Cervix: Normal appearance, without discharge or lesions. No cervical motion tenderness. Pap smear obtained. Uterus: Normal size and shape. anteverted position. Non-tender. Mobile Adnexa: No adnexal masses or tenderness bilaterally. Perianal area without lesions Assessment/Plan: 24 y.o. 1. Routine rn obgyn exam - normal 2. Screening for sexually transmitted infections Gonorrhea/Chlamydia testing - declines 3. Contraception - discussed OCP for cycle regulation, considering ttc after wedding 11/2025 4. Health Maintenance and Screening -Reviewed ASCCP guidelines. Pap smear collected, yearly pelvic exam. -Reviewed and encouraged diet and exercise for cardiovascular and bone health. -Reviewed breast self awareness. -Recommended MVI with folic acid to prevent NTD if possibility -Encouraged intake of calcium and vitamin D3 as well as weight bearing exercise three times weekly for bone health. Problem List Items Addressed This Visit None Visit Diagnoses Routine gynecological examination - Primary Screening for cervical cancer Relevant Orders Pap Test (Completed) Leah Guerrero MD documented in this encounter Plan of Treatment Pending Results Name Type Priority Associated Diagnoses Date /Time Pap Test Pathology and Cytology Routine 12:00 AM EDT documented as of this encounter Visit Diagnoses Diagnosis Routine gynecological examination- Primary Screening for cervical cancer Screening for malignant neoplasm of the cervix documented in this encounter Care Teams Marriage And Family Social Worker Relationship Specialty Start Date End Date Kelly Kamara MD [address] [place] [address] [place] [address] PCP - General Internal Medicine 11/09/24 documented as of this encounter Additional Source Comments The information contained in this document represents components of the legal health record. It is not the complete legal health record.[facility]
--- NOTE | 2024-12-26 09:11 | MHC.OFFWIV ---
Intake Vital Signs 12/26/24 09:18 Height 5 ft Weight 156 lb BMI 30.5 BP 110/60 Blood Pressure Location Rt brachial Position Sitting Pulse 65 Pulse Source Pulse Oximeter Temp 98.0 F Temp Source Oral Pulse Oximetry (%) 99 Oxygen Delivery Method Room Air Intake Visit Reasons: EP Right foot pain Intake Note: pt is here for right foot pain, 3 weeks ongoing, denies any known injury Patient Tobacco Use Status: Never used Tobacco Allergies No Known Allergies Allergy (Verified 12/26/24 09:43) Medication List - Last Reconciled 12/26/24 by Pilar Oates, [facility]- drospirenone-ethinyl estradiol 3-0.02 mg (Savi (28)) 1 tab PO DAILY hydrocortisone 2.5% appl topical DAILY ibuprofen 800 mg PO Q8H methocarbamol 500 mg PO QID naproxen (Naprosyn) 500 mg PO BID Do you need a note to return to daycare/school/sports/work: Yes HPI HPI Comments History of Present Illness Details History of Present Illness The patient is a 24-year-old female presenting with right foot/ankle pain. Right foot/Ankle pain: - Ongoing for three weeks. Started after walking @ [employer]. - No known injury. - Progressive worsening pain. - Tingling and painful when walking. - Tried ibuprofen with minimal relief. - No fever, chills, or redness. - Potential twist injury without awareness. - Pain with movement and palpation. - Discomfort on inversion and pressure. Review of Systems - Musculoskeletal: Reports right foot pain and tingling, denies history of foot problems. - General: Denies fever and chills. - Integumentary: Denies redness on the foot. Physical Exam General: Well developed, well nourished, in no acute distress. Appears stated age. Head: Normocephalic, atraumatic. Lungs: Speaking in full sentences Musculoskeletal: Localized edema of medial aspect R ankle around medial malleolus and talus. Pain w/ inversion and pressure over the areas of edema. Otherwise normal exam of foot and ankle. Pulses: Peripheral pulses are equal and palpable bilaterally. Extremities: No clubbing, cyanosis nor edema is noted. Psych: Mood and affect appropriate. Diagnostic results Pending Discussion Notes I discussed with the patient the likelihood of a right ankle sprain based on the clinical presentation. We considered it productive to obtain an X-ray of her right foot to rule out any bone fragments or fractures. I recommended treating it as an ankle sprain, involving immobilization with a lace-up ankle brace. We discussed the proper adjustment and use of the brace and advised not to wear it during sleep. I provided guidance on performing range of motion exercises at home using the affected foot to trace the alphabet with her great toe, which is beneficial for ankle sprains. The patient was informed about taking ibuprofen 800 mg for inflammation, with instructions to be sure to take it with food. I arranged for the necessary prescription through her preferred pharmacy, [facility]. Counseling included resting, icing, elevation, and potential physical therapy should the swelling worsen or fails to improve. I confirmed her agreement and understanding of the plan and arranged for Gerard to provide correct fitting instructions for the brace. Follow-up on the results of the X-ray will be communicated via the health portal, and I emphasized the importance of monitoring for any change in symptoms. Patient was given time to ask questions. All questions were answered to their satisfaction. Assessment and Plan 1. Right foot/Ankle pain - Order X-ray. - Treat as ankle sprain. - Prescribe ibuprofen 800 mg. - Use motion exercises. - Follow up with portal for X-ray results. - Immobilize with a lace-up brace. - Detailed brace fitting instruction provided. - Recommend rest, ice, elevation. - Possible physical therapy. - No brace during sleep. Patient Instructions - Wear the lace-up brace during the day. - Do not sleep wearing the brace. - Take ibuprofen 800 mg with food. - Rest, ice, and elevate your foot if swollen. - Use your toe to draw the alphabet for exercises. - Check the health portal for your x-ray results. - Monitor your symptoms and seek care if they worsen. Consent Patient was informed and verbally consented to the use of an ambient scribe for clinic note documentation during this visit. [facility] Medical History Swelling of middle finger No known health problems Social History Housing: House Alcohol intake: current Alcohol intake frequency: holidays/special occasions only Patient Tobacco Use Status: Never used Tobacco e-Cigarette/Vaping Use: Never Used service: No Current occupational status: employed Gender identity: Female Cognitive needs: No Hearing needs: No Vision needs: Yes Female Reproductive History Menstrual Age of Menarche: 11 Physical Exam Vital Signs: Last Vital Signs Temp 98.0 F 12/26/24 09:18 Pulse 65 12/26/24 09:18 BP 110/60 12/26/24 09:18 Pulse Ox 99 12/26/24 09:18 Oxygen Delivery Method Room Air 12/26/24 09:18 BMI result Body Mass Index 30.5 Assessment & Plan Assessment & Plan (1) Pain and swelling of right ankle: Code(s): M25.571 - Pain in right ankle and joints of right foot; M25.471 - Effusion, right ankle Plan . Orders: Orders XR ankle RT min 3V Today M25.471 - Effusion, right ankle, M25.571 - Pain in right ankle and joints of right foot Medications: New ibuprofen (IBU) 800 mg PO Q8H PRN 30 tabs 0RF pain Coding Level of Care Code Est Pt Level 4 (61727) Diagnoses Pain and swelling of right ankle M25.571; M25.471
--- OUTSIDE RECORDS SUMMARY | 2024-12-26 09:13 | XMS_ITS | Encounter Summary ---
Author Organization [facility] Address [address] [place] [phone] Phone Care Team Providers Care Vision Mixer Name Role Phone Unavailable Primary Care Provider Unavailabl e Encounter Details Date Type Department Care Team (Late st Contact Info) Description 10/18/2016 Conversion Encounter [facility] - [address] [id number] Social History Tobacco Use Types Packs/Day Years [...]
--- OUTSIDE RECORDS SUMMARY | 2024-12-26 09:14 | XMS_ITS | Encounter Summary ---
Author Organization [facility] Address [address] [place] [address] Phone Care Team Providers Care Window Cutter Name Role Phone Unavailable Primary Care Provider Unavailabl e Encounter Details Date Type Department Care Team (Late st Contact Info) Description 07/22/2009 Documentation [facility] [place] [address] [place] [address] Family Medicine, Physician [address] [place], [place] [address] Social History Tobacco Use Types Packs/Day Years [...]
--- OUTSIDE RECORDS SUMMARY | 2024-12-26 09:14 | XMS_ITS | Encounter Summary ---
Author Organization [facility] Address [address] [place] [address] Phone Care Team Providers Care Lead Web Developer Name Role Phone Unavailable Primary Care Provider Unavailabl e Encounter Details Date Type Department Care Team (Late st Contact Info) Description 09/18/2010 [place] [facility] [place] [address] [place], [place] [id number] Family Medicine, Physician [address] [place], [place] [address] Social History Tobacco Use Types Packs/Day Years [...]
--- OUTSIDE RECORDS SUMMARY | 2024-12-26 09:14 | XMS_ITS | Encounter Summary ---
Author Organization [facility] Address [address] [place] [address] Phone Care Team Providers Care Tank Farm Operator Name Role Phone Unavailable Primary Care Provider Unavailabl e Encounter Details Date Type Department Care Team (Late st Contact Info) Description 02/26/2014 [place] [facility] [place] [address] [place], [place] [phone] Family Medicine, Physician [address] [place] [address] Social History Tobacco Use Types Packs/Day Years [...]
--- OUTSIDE RECORDS SUMMARY | 2024-12-26 09:14 | XMS_ITS | Encounter Summary ---
Author Organization [facility] Address [address] [place] [address] Phone Care Team Providers Care Deputy Coroner Name Role Phone Unavailable Primary Care Provider Unavailabl e Encounter Details Date Type Department Care Team (Late st Contact Info) Description 05/11/2014 Documentation [facility] [place] [address] [place], [place] [id number] Family Medicine, Physician [address] [place] [address] Social History Tobacco Use Types Packs/Day Years [...]
--- OUTSIDE RECORDS SUMMARY | 2024-12-26 09:14 | XMS_ITS | Clinical Summary ---
Author Organization [facility] Address [address] [place] [address] [place] [phone] Phone Care Team Providers Care Imaging Account Manager Name Role Phone Kelly Kamara MD Primary Care Provider [phone] Allergies No known active allergies Medications multivitamin-mi nerals-lutein (CENTRUM SILVER) Tab Take 1 tablet by mouth daily. Active omega 5-NBK-BJN-fish oil (FISH OIL) 60-90-500 mg capsule Take by mouth. Activ e drospirenone-et hinyl estradioL 3-0.02 mg per tablet Take 1 tablet by mouth daily. 84 tablet 4 5 02/15/20 26 Active hydrocortisone 2.5 % cream Apply topically daily. 28 g 1 5 Active Encounters Date Type Department Care Team Description 12/21/2024 3:10 PM EDT Office Visit [facility] [address] [place] [address] Leah Guerrero MD Routine gynecological examination (Primary Dx); Screening for cervical cancer from Last 3 Months Family History Medical History Relation Comments Throat cancer Father No Known Problems Maternal Grandfather No Known Problems Maternal Grandmother Lung cancer Paternal Grandfather Relation Status Comments Father Maternal Grandfather Maternal Grandmother Paternal Grandfather Social History Tobacco Use Types Packs/Day Years [...] on file Sexual Orientation Not on file Last Filed Vital Signs Vital Sign Reading Time Taken Comments Blood Pressure 110/62 12/21/2024 2:56 PM EDT Pulse - - Temperature - - Respiratory Rate - - Oxygen Saturation - - Inhaled Oxygen Concentration - - Weight 72.1 kg (159 lb) 12/21/2024 2:56 PM EDT Height 152.4 cm (5') 12/21/2024 2:56 PM EDT Body Mass Index 31.05 12/21/2024 2:56 PM EDT Plan of Treatment Health Maintenance Due Date Last Done Comments Adult Td,Tdap Booster 1998 DEPRESSION SCREENING 2010 HPV VACCINES (1 - 3-dose series) 2013 HEPATITIS C SCREENING 2016 HIV ONE-TIME SCREENING (18-6 5 YEARS) 2016 COVID-19 VACCINE (2024-2 6 season) 2024 PAP SMEAR 12/22/2027 12/21/2024 INFLUENZA VACCINE Completed 12/11/2024 SMOKING STATUS SCREENING (On ce After 26 Yrs) Completed 12/21/2024 HEPATITIS A VACCINES Aged Out No long [...] topic Medical Devices Not on file Insurance WELLSENSE NON NSPG PCP SILVER CLARITY CONNECTORCARE WELLSENSE NON NSPG PCP SILVER CLARITY CONNECTORCARE WELLSENSE NON NSPG PCP SILVER CLARITY CONNECTORCARE WELLSENSE NON NSPG PCP SILVER CLARITY CONNECTORCARE WELLSENSE NON NSPG PCP SILVER CLARITY CONNECTORCARE WELLSENSE NON NSPG PCP SILVER CLARITY CONNECTORCARE Care Teams Imaging Account Manager Relationship Specialty Start Date End Date Kelly Kamara MD [address] [place] [address] [place] [address] PCP - General Internal Medicine 11/09/24 Additional Source Comments The information contained in this document represents components of the legal health record. It is not the complete legal health record.[facility]
--- OUTSIDE RECORDS SUMMARY | 2024-12-26 09:14 | XMS_ITS | Clinical Summary ---
Author Organization [facility] Address [address] [place] [address] Phone Care Team Providers Care Can Repairer Name Role Phone Unavailable Primary Care [...] of hip, No family history of Sudden /[place] under age 55, No family history of [...] complete this topic Procedures * Due to [place] Arrively law, this organization might not be sharing sensitive test results. Procedure Name Priority Date/Time Associated Diagnosis Comments CHLAMYDIA AND GONORRHEA, AMPLIFIED Routine 11/18/2018 9:58 AM EDT Special screening for bacterial and spirochetal disease from Last 3 Months or Most Recently Relevant to Health Maintenance Results * Due to [place] Arrively law, this organization might not be sharing sensitive test results. * Chlamydia and Gonorrhoea, Amplified (11/18/2018 9:58 AM EDT) Chlamydia Trachomatis, DNA Probe NEGATIVE (NEG) [facility] Comment: No Chlamydia Trachomatis RNA detected in this patient's sample (REFERENCE RANGE/NORMAL VALUE: NOT DETECTED) Note: This test uses ground water technician- mediated amplification method to detect rRNA from C. Trachomatis URINE GC AMP PROBE NEGATIVE (NEG) [facility] Comment: No Neisseria Gonorrhoeae RNA detected in this patient's sample (REFERENCE RANGE/NORMAL VALUE: NOT DETECTED) NOTE: This test uses ground water technician-mediated amplification method to detect rRNA from N.Gonorrhoeae. [...] without risk of sexual abuse. Consult the [facility] if needed. Contact phone number . Therapeutic failure or success cannot be determined with the Aptima Combo2 assay since nucleic acid may persist following appropriate antimicrobial therapy. The Centers for Disease Control and Prevention (CDC) recommends confirmatory retesting using culture or a different nucleic acid amplification test when positive results occur, if indicated. Testing performed or reported by [facility], a Service of [facility], [address] [place] [id number] Urine 11/18/2018 9:58 AM EDT 11/19/2018 12:21 AM EDT us Miguelangel Dennis MD LAB MICROBIOLOGY - GENERAL OR DERABLES Final Result [facility] from Last 3 Months or Most Recently Relevant to Health Maintenance Insurance [facility]
[2024-12-26 09:18] VITALS: BP 110/60; PULSE 65; TEMP 36.7; O2SAT 99; BMI 30.5
== END 2024-12-26 10:02 | disposition home or self-care (01) ==
PROVIDERS: PCP Internal Medicine; Visit Provider Nurse Practitioner Family
DX: M25.571 Pain in right ankle and joints of right foot (principal); M25.471 Effusion, right ankle

== ENCOUNTER 2024-12-26 09:10 | Outpatient (REF) | payer OTHER, SELFPAY ==
--- NOTE | ~2024-12-26 | XR_ITS ---
CLINICAL HISTORY: M25.571 - Pain in right ankle and joints of right foot --- Additional Notes or Special Instructions: medial aspectproximal to medial malleolus and tallus 3 view right ankle Comparison: None provided Findings: Bones intact. No dislocations. No significant arthritic change or erosions. No ankle effusion. No radiopaque foreign body. IMPRESSION: 1. No acute findings. This document has been electronically signed by: Canelo Amaya MD on 12/26/2024 12:08:45
== END 2024-12-26 09:11 | disposition home or self-care (01) ==
LOC: HO.HMGCX 09:10
PROVIDERS: PCP Internal Medicine; Visit Provider Nurse Practitioner Family
DX: M25.471 Effusion, right ankle (principal); M25.571 Pain in right ankle and joints of right foot
CPT/HCPCS: 73610; 99212

== ENCOUNTER → 2024-12-26 09:59 | Outpatient (BNV) | payer OTHER, SELFPAY | PROVIDERS: PCP Internal Medicine; Visit Provider Radiology Diagnostic Radiology | DX: M25.571 Pain in right ankle and joints of right foot (principal) | CPT/HCPCS: 73610 ==